=== PATIENT | female | born 1945 | race Two or more races ===

== ENCOUNTER 2023-02-18 22:54 | Inpatient (IN) | payer OTHER ==
[~2023-02-18] VITALS: Ht 160 cm; Wt 53.7 kg
[2023-02-18] MEDS ORDERED: ETOMIDATE (2MG/ML) 20ML VIAL IV ONE ×2 (22:58→23:30)
[2023-02-18] MEDS ORDERED: ROCURONIUM 10MG/ML 10ML VIAL IV ONE ×2 (22:59→23:30)
[2023-02-18] MEDS ORDERED: fentaNYL Drip 2500mCg/250mlNS 250 ML IV ONE (23:09)
[2023-02-18] MEDS ORDERED: MIDAZOLAM DRIP 50 mg/50mL 50 ML IV ONE (23:10)
[2023-02-18] MEDS: MIDAZOLAM DRIP 50 mg/50mL 50 ML IV SCH (23:19)
[2023-02-18] MEDS: fentaNYL Drip 2500mCg/250mlNS 250 ML IV SCH (23:19)
[2023-02-18 23:30] VITALS: O2SAT 76
[2023-02-19] VITALS (85 sets, daily range): BP systolic 85–199; BP diastolic 35–94; PULSE 52–101; RESP 15–35; TEMP 96.3–100.4; O2SAT 91–100
[2023-02-19 00:11] LABS: Hematocrit 36.3 % (36.0-46.0); Hemoglobin 11.2 g/dL (12.2-16.2); Mean Corpuscular Hemoglobin 24.2 pg (28.0-32.0); Mean Corpuscular Hgb Conc. 30.9 g/dL (32.0-36.0); Mean Corpuscular Volume 78.4 fL (80.0-100.0); Red Blood Cells 4.63 10^6/uL (4.0-5.20); Red Cell Distribution Width 19.2 % (11.8-14.3); White Blood Cell 22.7 10^3/uL (4.4-10.8)
[2023-02-19 00:21] LABS: Basophils % (manual) 0 (0.0-2.0); Blast Cells 0; Eosinophils % (manual) 0 (0-7); INR 1.09 (0.9-1.15); Metamyelocytes % 0; Myelocytes % 0; Partial Thromboplastin Time 35.4 SEC (24.5-34.5); Promyelocytes % 0; Prothrombin Time 11.4 sec (9.3-11.8); Reactive Lymphocytes 0
[2023-02-19 00:27] LABS: Alanine Aminotransferase 91 U/L (7-40); Albumin 4.2 g/dL (3.2-4.8); Alkaline Phosphatase 125 U/L (46-116); Anion Gap 16 (5-15); Aspartate Aminotransferase 88 U/L (13-40); BUN/Creatinine Ratio 8.2 (10.0-20.0); Bilirubin, Total 0.2 mg/dL (0.2-1.0); Blood Alcohol 3.9 mg/dL (<10); Blood Urea Nitrogen 10 mg/dL (9-23); Calcium 8.9 mg/dL (8.5-10.1); Carbon Dioxide 18 mmol/L (20-30); Chloride 97 mmol/L (98-107); Glucose 244 mg/dL (74-106); Sodium 131 mmol/L (136-145); Total Protein 6.2 g/dL (5.7-8.2)
[2023-02-19 00:32] LABS: Acetaminophen < 2.0 UG/ML (10.0-20.0); Salicylate < 3.0 mg/dL (2.8-20.0)
[2023-02-19 00:44] LABS: Lipase 34 U/L (12-53); Magnesium 2.2 mg/dL (1.6-2.6)
[2023-02-19 00:59] LABS: Band Neutrophils % (manual) 3; Lymphocytes % (manual) 31 (10.0-50.0); Monocytes % (manual) 4 (0-12); Platelet Estimate Adequate
[2023-02-19] MEDS ORDERED: VANCOMYCIN 1GM/200ML 200 ML IV ONE (01:00)
[2023-02-19] MEDS ORDERED: PIPERACILLIN-TAZOB 3.375GM 100 ML IV ONE (01:00)
[2023-02-19] MEDS ORDERED: LACTATED RINGER'S 2,100 ML IV ONE (01:00)
[2023-02-19 01:57] LABS: Urine Bacteria FEW /hpf (None Seen); Urine Blood 1+ /uL (Negative); Urine Clarity Clear (Clear); Urine Color Yellow (Yellow); Urine Protein, UAD 1+ (Negative); Urine Specific Gravity 1.014 (1.001-1.035); Urine Urobilinogen Normal (Negative); Urine WBC 5 /hpf (0 - 5)
[2023-02-19 02:01] LABS: Amphetamine Screen, Urine Neg (NEGATIVE); Barbiturate Scree,Urine Neg (NEGATIVE); Benzodiazephine Screen, Urine Neg (NEGATIVE); Cocaine Screen, Urine Neg (NEGATIVE); Opiate Scree,Urine Neg (NEGATIVE); Phencyclidine Screen, Urine Neg (NEGATIVE)
[2023-02-19 02:02] LABS: Cannabinoid Screen, Urine Pos (NEGATIVE)
[2023-02-19 02:50] LABS: Base Excess -7.7 mmol/L (-2.0-2.0)
[2023-02-19 03:04] LABS: Base Excess -4.2 mmol/L (-2.0-2.0)
[2023-02-19] MEDS ORDERED: NOREPINEPHRINE 8 MG/250ML KIT 250 ML IV ONE (04:20)
[2023-02-19] MEDS: NOREPINEPHRINE 8 MG/250ML KIT 250 ML IV SCH ×2 (04:25→23:39)
[2023-02-19] MEDS ORDERED: ALBUMIN 25% 100 ML IV ONE (04:30)
[2023-02-19] MEDS: VASOPRESSIN 20 UNITS in SODIUM CHL 0.9% 99 ML IV SCH ×3 (04:45→15:52)
[2023-02-19] MEDS ORDERED: VASOPRESSIN 20 UNIT/ML ONE (04:46)
[2023-02-19] MEDS: MIDAZOLAM DRIP 50 mg/50mL 50 ML IV SCH ×3 (06:58→23:39)
[2023-02-19] MEDS: ENOXAPARIN SOD 40 MG/0.4 ML SYRINGE SC SCH (10:10)
[2023-02-19 10:24] LABS: Alanine Aminotransferase 107 U/L (7-40); Albumin 4.4 g/dL (3.2-4.8); Alkaline Phosphatase 158 U/L (46-116); Anion Gap 22 (5-15); Aspartate Aminotransferase 164 U/L (13-40); BUN/Creatinine Ratio 7.3 (10.0-20.0); Blood Urea Nitrogen 8 mg/dL (9-23); Calcium 8.9 mg/dL (8.7-10.4); Carbon Dioxide 10 mmol/L (20-30); Chloride 103 mmol/L (98-107); Glucose 132 mg/dL (74-106); Magnesium 2.1 mg/dL (1.6-2.6); Potassium 4.6 mmol/L (3.5-5.1); Sodium 135 mmol/L (136-145)
[2023-02-19] MEDS ORDERED: ALBUTEROL SULF 2.5 MG/0.5ML(0.5%) NEB SOLN ONE (10:24)
[2023-02-19 10:25] LABS: Bilirubin, Total 0.4 mg/dL (0.2-1.0); Phosphorus 5.3 mg/dL (2.4-5.1); Total Protein 6.5 g/dL (5.7-8.2)
[2023-02-19] MEDS ORDERED: ALBUTEROL SULF 2.5 MG/0.5ML(0.5%) NEB SOLN NEB ONE (10:30)
[2023-02-19] MEDS ORDERED: CLINIMIX PER PHARMACY 0 ML IV SCH (11:45)
[2023-02-19] MEDS: ALBUTEROL SULF 2.5 MG/0.5ML(0.5%) NEB SOLN NEB SCH ×2 (12:01→18:45)
[2023-02-19] MEDS: PIPERACILLIN-TAZOB 3.375GM 100 ML IV SCH ×2 (14:10→21:53)
[2023-02-19] MEDS: methylPREDNISolone SOD SUCC 40 MG/ML VL IV SCH ×2 (14:10→22:02)
[2023-02-19] MEDS ORDERED: FLUO-125 PO (16:27)
[2023-02-19] MEDS ORDERED: ALBUAER3 IN (16:27)
[2023-02-19] MEDS ORDERED: RIVA15TA PO (16:27)
[2023-02-19] MEDS ORDERED: FLUT1SPR5 (16:27)
[2023-02-19] MEDS ORDERED: LEVO100T8 PO (16:27)
[2023-02-19] MEDS ORDERED: ATOR20TA PO (16:27)
[2023-02-19] MEDS ORDERED: FLUT1AER17 INH (16:27)
[2023-02-19] MEDS ORDERED: METO25TA93 PO (16:27)
[2023-02-19] MEDS ORDERED: TRAM50TA2 PO (16:27)
[2023-02-19] MEDS ORDERED: ARIP5TAB36 PO (16:27)
[2023-02-19] MEDS ORDERED: OXYB5TAB24 PO (16:27)
[2023-02-19] MEDS ORDERED: MONT-8 PO (16:27)
[2023-02-19] MEDS ORDERED: OMEP20TA PO (16:27)
[2023-02-19] MEDS ORDERED: POTA-220 PO (16:27)
[2023-02-19] MEDS ORDERED: FURO1TAB31 PO (16:27)
[2023-02-19 19:00] LABS: Magnesium 1.6 mg/dL (1.6-2.6)
[2023-02-19] MEDS ORDERED: AMINO ACID INFUSION IN D10W 1,000 ML IV NR (20:00)
[2023-02-19] MEDS: fentaNYL Drip 2500mCg/250mlNS 250 ML IV SCH (23:30)
[2023-02-19] MEDS: InsuLIN REG 1unit/0.01ml Soln (100units/ml) SC SCH (23:49)
[2023-02-19] MEDS: ACCU-CHEK COMFORT CURVE STRIP VI SCH (23:49)
[2023-02-20] VITALS (104 sets, daily range): BP systolic 89–181; BP diastolic 38–80; PULSE 56–107; RESP 9–26; TEMP 97.9–99.1; O2SAT 93–100
[2023-02-20] MEDS ORDERED: DEXTROSE (50%) 50ML SYRG IV SCH
[2023-02-20] MEDS: ALBUTEROL SULF 2.5 MG/0.5ML(0.5%) NEB SOLN NEB SCH ×4 (00:15→18:12)
[2023-02-20] MEDS: VASOPRESSIN 20 UNITS in SODIUM CHL 0.9% 99 ML IV SCH ×2 (02:59→14:06)
[2023-02-20 04:09] LABS: Hemoglobin 8.8 g/dL (12.2-16.2)
[2023-02-20 04:12] LABS: Hematocrit 27.1 % (36.0-46.0); Mean Corpuscular Hemoglobin 24.2 pg (28.0-32.0); Mean Corpuscular Hgb Conc. 32.4 g/dL (32.0-36.0); Mean Corpuscular Volume 74.7 fL (80.0-100.0); Red Blood Cells 3.63 10^6/uL (4.0-5.20); Red Cell Distribution Width 18.9 % (11.8-14.3); White Blood Cell 10.9 10^3/uL (4.4-10.8)
[2023-02-20 04:24] LABS: Basophils % (manual) 0 (0.0-2.0); Blast Cells 0; Eosinophils % (manual) 0 (0-7); Metamyelocytes % 0; Myelocytes % 0; Promyelocytes % 0; Reactive Lymphocytes 0
[2023-02-20 04:31] LABS: Alanine Aminotransferase 64 U/L (7-40); Albumin 3.9 g/dL (3.2-4.8); Alkaline Phosphatase 88 U/L (46-116); Anion Gap 10 (5-15); Aspartate Aminotransferase 42 U/L (13-40); BUN/Creatinine Ratio 15.1 (10.0-20.0); Bilirubin, Total 0.5 mg/dL (0.2-1.0); Blood Urea Nitrogen 13 mg/dL (9-23); Calcium 8.7 mg/dL (8.7-10.4); Carbon Dioxide 20 mmol/L (20-30); Chloride 100 mmol/L (98-107); Glucose 198 mg/dL (74-106); Magnesium 1.6 mg/dL (1.6-2.6); Phosphorus 3.3 mg/dL (2.4-5.1); Potassium 3.6 mmol/L (3.5-5.1); Total Protein 5.6 g/dL (5.7-8.2)
[2023-02-20 04:34] LABS: Sodium 130 mmol/L (136-145)
[2023-02-20 05:16] LABS: Band Neutrophils % (manual) 2; Lymphocytes % (manual) 7 (10.0-50.0); Monocytes % (manual) 1 (0-12); Platelet Estimate Adequate
[2023-02-20] MEDS: PIPERACILLIN-TAZOB 3.375GM 100 ML IV SCH ×3 (05:42→21:33)
[2023-02-20] MEDS: methylPREDNISolone SOD SUCC 40 MG/ML VL IV SCH ×3 (05:59→21:33)
[2023-02-20] MEDS: InsuLIN REG 1unit/0.01ml Soln (100units/ml) SC SCH ×4 (05:59→23:58)
[2023-02-20] MEDS: ACCU-CHEK COMFORT CURVE STRIP VI SCH ×4 (05:59→23:58)
[2023-02-20] MEDS: fentaNYL Drip 2500mCg/250mlNS 250 ML IV SCH (07:19)
[2023-02-20 07:39] LABS: Base Excess -2.8 mmol/L (-2.0-2.0)
[2023-02-20] MEDS ORDERED: cefTRIAXone 1GM/50ML D5W 50 ML IV SCH (09:00)
[2023-02-20] MEDS: NICOTINE 21MG/24 HR TOPICAL PATCH TD SCH (10:00)
[2023-02-20] MEDS: PANTOPRAZOLE 40 MG/10 ML VIAL INJ IV SCH (10:13)
[2023-02-20] MEDS: ENOXAPARIN SOD 40 MG/0.4 ML SYRINGE SC SCH (10:14)
[2023-02-20] MEDS ORDERED: PANT40T PO (10:51)
[2023-02-20] MEDS ORDERED: ACETAMINOPHEN IV 1000 MG/100ML (10MG/ML) IV PRN (12:00)
[2023-02-20 12:14] LABS: Base Excess -3.2 mmol/L (-2.0-2.0)
[2023-02-20] MEDS ORDERED: MAGNESIUM SULFATE 1GM/100ML 100 ML IV ONE (13:00)
[2023-02-20] MEDS ORDERED: LEVOTHYROXINE SODIUM 100 MCG/5 ML INJ IV ONE (13:00)
[2023-02-20] MEDS ORDERED: AMINO ACID INFUSION IN D10W 1,000 ML IV NR (20:00)
[2023-02-21] VITALS (86 sets, daily range): BP systolic 101–177; BP diastolic 42–81; PULSE 61–107; RESP 10–25; TEMP 97.7–100; O2SAT 91–100
[2023-02-21] MEDS: ALBUTEROL SULF 2.5 MG/0.5ML(0.5%) NEB SOLN NEB SCH ×6 (00:08→22:35)
[2023-02-21] MEDS ORDERED: ACETAMINOPHEN 650 mg PER 20.3 mL UD PO PRN (00:15)
[2023-02-21] MEDS: VASOPRESSIN 20 UNITS in SODIUM CHL 0.9% 99 ML IV SCH ×2 (01:13→12:01)
[2023-02-21 04:17] LABS: Hemoglobin 9.7 g/dL (12.2-16.2); Mean Corpuscular Hemoglobin 24.4 pg (28.0-32.0)
[2023-02-21 04:19] LABS: Hematocrit 30.9 % (36.0-46.0); Mean Corpuscular Hgb Conc. 31.3 g/dL (32.0-36.0); Red Blood Cells 3.96 10^6/uL (4.0-5.20); Red Cell Distribution Width 19.1 % (11.8-14.3); White Blood Cell 15.2 10^3/uL (4.4-10.8)
[2023-02-21 04:30] LABS: Alanine Aminotransferase 53 U/L (7-40); Albumin 4.1 g/dL (3.2-4.8); Alkaline Phosphatase 76 U/L (46-116); Anion Gap 11 (5-15); Aspartate Aminotransferase 30 U/L (13-40); BUN/Creatinine Ratio 11.4 (10.0-20.0); Bilirubin, Total 0.4 mg/dL (0.2-1.0); Blood Urea Nitrogen 10 mg/dL (9-23); Calcium 8.9 mg/dL (8.7-10.4); Carbon Dioxide 19 mmol/L (20-30); Chloride 103 mmol/L (98-107); Glucose 155 mg/dL (74-106); Potassium 3.5 mmol/L (3.5-5.1); Sodium 133 mmol/L (136-145)
[2023-02-21 04:37] LABS: Basophils % (manual) 0 (0.0-2.0); Eosinophils % (manual) 0 (0-7); Metamyelocytes % 0
[2023-02-21 04:38] LABS: Blast Cells 0; Myelocytes % 0; Promyelocytes % 0; Reactive Lymphocytes 0
[2023-02-21] MEDS: NOREPINEPHRINE 8 MG/250ML KIT 250 ML IV SCH (04:45)
[2023-02-21] MEDS: methylPREDNISolone SOD SUCC 40 MG/ML VL IV SCH ×3 (05:41→21:59)
[2023-02-21] MEDS: PIPERACILLIN-TAZOB 3.375GM 100 ML IV SCH ×4 (06:00→21:59)
[2023-02-21] MEDS: InsuLIN REG 1unit/0.01ml Soln (100units/ml) SC SCH ×4 (06:00→23:33)
[2023-02-21] MEDS: ACCU-CHEK COMFORT CURVE STRIP VI SCH ×4 (06:19→23:34)
[2023-02-21 08:15] LABS: Band Neutrophils % (manual) 4; Lymphocytes % (manual) 2 (10.0-50.0); Monocytes % (manual) 2 (0-12)
[2023-02-21 08:16] LABS: Platelet Estimate Adequate
[2023-02-21] MEDS: MORPHINE SULFATE INJ 2 MG/ml SYRG IV PRN ×2 (09:15→16:04)
[2023-02-21] MEDS: NICOTINE 21MG/24 HR TOPICAL PATCH TD SCH (10:00)
[2023-02-21] MEDS: ENOXAPARIN SOD 40 MG/0.4 ML SYRINGE SC SCH (10:12)
[2023-02-21] MEDS: PANTOPRAZOLE 40 MG/10 ML VIAL INJ IV SCH (10:12)
[2023-02-21] MEDS: LEVOTHYROXINE SODIUM 100 MCG/5 ML INJ IV SCH (10:12)
[2023-02-21] MEDS: IPRATROPIUM BROM 0.5 MG/2.5ML INH SOL NEB SCH ×3 (14:17→22:35)
[2023-02-22] VITALS (39 sets, daily range): BP systolic 133–169; BP diastolic 48–76; PULSE 77–109; RESP 12–24; TEMP 98.7–99; O2SAT 3–98
[2023-02-22] MEDS: ALBUTEROL SULF 2.5 MG/0.5ML(0.5%) NEB SOLN NEB SCH ×6 (02:30→22:45)
[2023-02-22] MEDS: IPRATROPIUM BROM 0.5 MG/2.5ML INH SOL NEB SCH ×6 (02:30→22:45)
[2023-02-22] MEDS: MORPHINE SULFATE INJ 2 MG/ml SYRG IV PRN ×2 (03:12→07:33)
[2023-02-22 04:12] LABS: Basophils # (auto) 0 10 ^3/uL (0-0.2); Eosinophils # (auto) 0 10 ^3/uL (0-0.8); Hemoglobin 8.7 g/dL (12.2-16.2); Lymphocytes # (auto) 0.3 10 ^3/uL (0.4-5.4); Neutrophils # (auto) 11.3 10 ^3/uL (1.6-8.6)
[2023-02-22 04:14] LABS: Lymphocytes % (auto) 2.3 % (10.0-50.0); Mean Corpuscular Hemoglobin 24.1 pg (28.0-32.0); Mean Corpuscular Hgb Conc. 32.3 g/dL (32.0-36.0); Mean Corpuscular Volume 74.5 fL (80.0-100.0); Monocytes # (auto) 0.5 10 ^3/uL (0-1.3); Monocytes % (auto) 3.9 % (0.0-12.0); Neutrophils % (auto) 93.8 % (37.0-80.0); Red Blood Cells 3.62 10^6/uL (4.0-5.20); White Blood Cell 12.1 10^3/uL (4.4-10.8)
[2023-02-22 04:18] LABS: Chloride 106 mmol/L (98-107); Potassium 3.5 mmol/L (3.5-5.1); Sodium 138 mmol/L (136-145)
[2023-02-22 04:19] LABS: Anion Gap 8 (5-15); Carbon Dioxide 24 mmol/L (20-30)
[2023-02-22 04:24] LABS: BUN/Creatinine Ratio 15.1 (10.0-20.0); Blood Urea Nitrogen 13 mg/dL (9-23); Glucose 113 mg/dL (74-106)
[2023-02-22] MEDS: methylPREDNISolone SOD SUCC 40 MG/ML VL IV SCH ×3 (05:36→21:59)
[2023-02-22] MEDS: PIPERACILLIN-TAZOB 3.375GM 100 ML IV SCH ×3 (05:36→21:58)
[2023-02-22] MEDS: InsuLIN REG 1unit/0.01ml Soln (100units/ml) SC SCH ×3 (05:54→18:00)
[2023-02-22] MEDS: ACCU-CHEK COMFORT CURVE STRIP VI SCH ×4 (05:55→23:56)
[2023-02-22] MEDS ORDERED: BUDESONIDE (INHALATION) 0.5 MG/2 ML NEB NEB SCH (10:00)
[2023-02-22] MEDS: PANTOPRAZOLE 40 MG/10 ML VIAL INJ IV SCH (10:49)
[2023-02-22] MEDS: LEVOTHYROXINE SODIUM 100 MCG/5 ML INJ IV SCH (10:49)
[2023-02-22] MEDS: ENOXAPARIN SOD 40 MG/0.4 ML SYRINGE SC SCH (10:49)
[2023-02-22] MEDS ORDERED: ALPRAZolam 0.25 MG TAB PO PRN (11:15)
[2023-02-22] MEDS ORDERED: BUDESONIDE (INHALATION) 0.5 MG/2 ML NEB NEB ONE (12:00)
[2023-02-22] MEDS ORDERED: POTASSIUM CHL 20 Meq TABLET PO ONE (16:00)
[2023-02-22] MEDS ORDERED: FUROSEMIDE 20 MG/2 ML VIAL IV ONE (16:00)
[2023-02-22] MEDS: BUDESONIDE (INHALATION) 0.5 MG/2 ML NEB NEB SCH (19:16)
[2023-02-22] MEDS: traMADol HCL 50 MG TAB PO PRN (20:24)
[2023-02-22] MEDS: MONTELUKAST SODIUM 10 MG TAB PO SCH (21:58)
[2023-02-23] VITALS (18 sets, daily range): BP systolic 111–176; BP diastolic 63–82; PULSE 65–101; RESP 16–20; TEMP 97.9–98.2; O2SAT 95–99
[2023-02-23] MEDS: InsuLIN REG 1unit/0.01ml Soln (100units/ml) SC SCH ×4 (00:02→17:29)
[2023-02-23] MEDS: ALBUTEROL SULF 2.5 MG/0.5ML(0.5%) NEB SOLN NEB SCH ×6 (02:00→22:29)
[2023-02-23] MEDS: IPRATROPIUM BROM 0.5 MG/2.5ML INH SOL NEB SCH ×6 (02:00→22:29)
[2023-02-23] MEDS: methylPREDNISolone SOD SUCC 40 MG/ML VL IV SCH ×3 (05:43→21:08)
[2023-02-23] MEDS: PIPERACILLIN-TAZOB 3.375GM 100 ML IV SCH ×3 (05:44→21:08)
[2023-02-23] MEDS: ACCU-CHEK COMFORT CURVE STRIP VI SCH ×3 (05:59→17:30)
[2023-02-23] MEDS ORDERED: LEVOTHYROXINE SODIUM 100 MCG/5 ML INJ IV SCH (06:00)
[2023-02-23 06:52] LABS: Chloride 104 mmol/L (98-107); Potassium 3.6 mmol/L (3.5-5.1); Sodium 138 mmol/L (136-145)
[2023-02-23 06:53] LABS: Anion Gap 11 (5-15); Carbon Dioxide 23 mmol/L (20-30)
[2023-02-23 06:54] LABS: Calcium 9.1 mg/dL (8.7-10.4)
[2023-02-23 06:58] LABS: Glucose 156 mg/dL (74-106)
[2023-02-23 06:59] LABS: BUN/Creatinine Ratio 13.6 (10.0-20.0); Blood Urea Nitrogen 12 mg/dL (9-23)
[2023-02-23] MEDS ORDERED: LEVOTHYROXINE SODIUM 100 MCG TAB PO SCH (07:00)
[2023-02-23] MEDS: BUDESONIDE (INHALATION) 0.5 MG/2 ML NEB NEB SCH ×2 (07:24→22:29)
[2023-02-23] MEDS: PANTOPRAZOLE 40 MG/10 ML VIAL INJ IV SCH (09:20)
[2023-02-23] MEDS: LEVOTHYROXINE SODIUM 100 MCG/5 ML INJ IV SCH (09:20)
[2023-02-23] MEDS: POTASSIUM CHL 20 Meq TABLET PO SCH (09:24)
[2023-02-23] MEDS: ENOXAPARIN SOD 40 MG/0.4 ML SYRINGE SC SCH (09:25)
[2023-02-23] MEDS: FUROSEMIDE 40 MG TAB PO SCH (09:38)
[2023-02-23] MEDS ORDERED: LACTULOSE 20Gm/30ML SOLN PO ONE (18:15)
[2023-02-23] MEDS: traMADol HCL 50 MG TAB PO PRN (20:44)
[2023-02-23] MEDS: MONTELUKAST SODIUM 10 MG TAB PO SCH (21:08)
[2023-02-24] VITALS (12 sets, daily range): BP systolic 107–160; BP diastolic 56–83; PULSE 54–88; RESP 16–20; TEMP 97.6–99.5; O2SAT 95–100
[2023-02-24] MEDS: ACCU-CHEK COMFORT CURVE STRIP VI SCH ×2 (00:11→05:44)
[2023-02-24] MEDS: InsuLIN REG 1unit/0.01ml Soln (100units/ml) SC SCH ×2 (00:23→05:43)
[2023-02-24] MEDS: ALBUTEROL SULF 2.5 MG/0.5ML(0.5%) NEB SOLN NEB SCH ×4 (02:05→14:08)
[2023-02-24] MEDS: IPRATROPIUM BROM 0.5 MG/2.5ML INH SOL NEB SCH ×4 (02:05→14:08)
[2023-02-24] MEDS: PIPERACILLIN-TAZOB 3.375GM 100 ML IV SCH ×3 (05:44→13:56)
[2023-02-24] MEDS: methylPREDNISolone SOD SUCC 40 MG/ML VL IV SCH (05:44)
[2023-02-24 06:22] LABS: Basophils # (auto) 0 10 ^3/uL (0-0.2); Chloride 104 mmol/L (98-107); Eosinophils # (auto) 0 10 ^3/uL (0-0.8); Hemoglobin 10.6 g/dL (12.2-16.2); Lymphocytes # (auto) 0.5 10 ^3/uL (0.4-5.4); Neutrophils # (auto) 8.1 10 ^3/uL (1.6-8.6); Potassium 3.8 mmol/L (3.5-5.1); Sodium 138 mmol/L (136-145)
[2023-02-24 06:24] LABS: Anion Gap 7 (5-15); Carbon Dioxide 27 mmol/L (20-30)
[2023-02-24 06:25] LABS: Calcium 8.9 mg/dL (8.7-10.4); Hematocrit 33.7 % (36.0-46.0); Lymphocytes % (auto) 5.3 % (10.0-50.0); Mean Corpuscular Hemoglobin 24.2 pg (28.0-32.0); Mean Corpuscular Hgb Conc. 31.5 g/dL (32.0-36.0); Mean Corpuscular Volume 76.9 fL (80.0-100.0); Monocytes # (auto) 0.6 10 ^3/uL (0-1.3); Neutrophils % (auto) 88.7 % (37.0-80.0); Nucleated Red Blood Cells % 0.1 %; Red Blood Cells 4.39 10^6/uL (4.0-5.20); Red Cell Distribution Width 18.7 % (11.8-14.3); White Blood Cell 9.2 10^3/uL (4.4-10.8)
[2023-02-24 06:29] LABS: Glucose 110 mg/dL (74-106)
[2023-02-24 06:30] LABS: BUN/Creatinine Ratio 11.5 (10.0-20.0); Blood Urea Nitrogen 11 mg/dL (9-23)
[2023-02-24] MEDS: BUDESONIDE (INHALATION) 0.5 MG/2 ML NEB NEB SCH (07:15)
[2023-02-24] MEDS ORDERED: PANTOPRAZOLE 40 MG TAB PO SCH (10:00)
[2023-02-24] MEDS: ENOXAPARIN SOD 40 MG/0.4 ML SYRINGE SC SCH (10:27)
[2023-02-24] MEDS: POTASSIUM CHL 20 Meq TABLET PO SCH (10:27)
[2023-02-24] MEDS: LEVOTHYROXINE SODIUM 100 MCG/5 ML INJ IV SCH (10:28)
[2023-02-24] MEDS: FUROSEMIDE 40 MG TAB PO SCH (10:28)
[2023-02-24] MEDS ORDERED: LEVO137T3 PO (13:43)
[2023-02-24] MEDS ORDERED: methylPREDNISolone SOD SUCC 40 MG/ML VL IV SCH (22:00)
== END 2023-02-24 16:28 | disposition home health service (06) | DRG 871 ==
LOC: ER 22:54 → EDBD 22:54 → TELE 02-19 03:53 → ICU WEST 02-19 05:40 → TELE-CENTR 02-22 18:49
PROVIDERS: ADMIT Internal Medicine; ATTEND Internal Medicine
PROC: 5A1945Z Respiratory Ventilation, 24-96 Consecutive Hours (ICD-10-PCS; principal; 2023-02-18)
PROC: 0BH17EZ Insertion of Endotracheal Airway into Trachea, Via Natural or Artificial Opening (ICD-10-PCS; 2023-02-18)
PROC: 06HN33Z Insertion of Infusion Device into Left Femoral Vein, Percutaneous Approach (ICD-10-PCS; 2023-02-19)
DX: A41.9 Sepsis, unspecified organism (principal); I46.9 Cardiac arrest, cause unspecified; J96.01 Acute respiratory failure with hypoxia; N17.0 Acute kidney failure with tubular necrosis; R65.21 Severe sepsis with septic shock; J44.1 Chronic obstructive pulmonary disease with (acute) exacerbation; D64.9 Anemia, unspecified; E03.9 Hypothyroidism, unspecified; F17.200 Nicotine dependence, unspecified, uncomplicated; J43.9 Emphysema, unspecified; Z82.49 Family history of ischemic heart disease and other diseases of the circulatory system; R74.01 Elevation of levels of liver transaminase levels
CPT/HCPCS: 31500; 36415; 36556; 36600; 70450; 71045; 71260; 74177; 80048; 80053; 80061; 80307; 80320; 80329; 81001; 82010; 82140; 82805; 82962; 83036; 83690; 83735; 83880; 84100; 84436; 84439; 84443; 84480; 84484; 85007; 85025; 85027; 85610; 85730; 86141; 86850; 86900; 86901; 87040; 87070; 87081; 87086; 87205; 92610; 93005; 93306; 93970; 94002; 94003; 94640; 97110; 97116; 97163; 97530; C9113; G0378; J1815; J2250; J2543; J3490; J7060; P9047

== ENCOUNTER 2023-03-06 15:58 | Inpatient (IN) | payer OTHER, MEDICAID ==
[~2023-03-06] VITALS: Ht 160 cm; Wt 54.7 kg
[~2023-03-06 15:58] MED LIST: ALBUAER3 IN; ARIP5TAB36 PO; ATOR20TA PO; FLUO-125 PO; FLUT1AER17 INH; FLUT1SPR5; FURO1TAB31 PO; LEVO137T3 PO; METO25TA93 PO; MONT-8 PO; OXYB5TAB24 PO; PANT40T PO; POTA-220 PO; RIVA15TA PO; TRAM50TA2 PO
[2023-03-06] MEDS ORDERED: ASPirin 81 mg TAB PO ONE (16:30)
[2023-03-06 17:16] LABS: Basophils # (auto) 0.1 10 ^3/uL (0-0.2); Basophils % (auto) 0.9 % (0.0-2.0); Eosinophils # (auto) 0.1 10 ^3/uL (0-0.8); Eosinophils % (auto) 0.6 % (0.0-7.0); Hematocrit 36.9 % (36.0-46.0); Hemoglobin 11.7 g/dL (12.2-16.2); Lymphocytes # (auto) 1.2 10 ^3/uL (0.4-5.4); Lymphocytes % (auto) 14.1 % (10.0-50.0); Mean Corpuscular Hemoglobin 24.1 pg (28.0-32.0); Mean Corpuscular Hgb Conc. 31.6 g/dL (32.0-36.0); Mean Corpuscular Volume 76.2 fL (80.0-100.0); Monocytes # (auto) 0.6 10 ^3/uL (0-1.3); Monocytes % (auto) 6.7 % (0.0-12.0); Neutrophils # (auto) 6.8 10 ^3/uL (1.6-8.6); Neutrophils % (auto) 77.7 % (37.0-80.0); Nucleated Red Blood Cells % 0.1 %; Red Blood Cells 4.84 10^6/uL (4.0-5.20); Red Cell Distribution Width 19.2 % (11.8-14.3); White Blood Cell 8.8 10^3/uL (4.4-10.8)
[2023-03-06 17:43] LABS: Alanine Aminotransferase 14 U/L (7-40); Albumin 4.3 g/dL (3.2-4.8); Alkaline Phosphatase 159 U/L (46-116); Anion Gap 9 (5-15); Aspartate Aminotransferase 19 U/L (13-40); Bilirubin, Total 0.5 mg/dL (0.2-1.0); Calcium 9.1 mg/dL (8.5-10.1); Carbon Dioxide 24 mmol/L (20-30); Chloride 95 mmol/L (98-107); Glucose 74 mg/dL (74-106); Potassium 3.5 mmol/L (3.5-5.1); Sodium 128 mmol/L (136-145); Total Protein 6.3 g/dL (5.7-8.2)
[2023-03-06 18:00] LABS: BUN/Creatinine Ratio 6.7 (10.0-20.0); Blood Urea Nitrogen < 5 mg/dL (9-23)
[2023-03-06 18:11] LABS: Magnesium 1.3 mg/dL (1.6-2.6)
[2023-03-06] MEDS ORDERED: ONDANSETRON HCL 4 MG/2 ML VIAL IV PRN (20:15)
[2023-03-06] MEDS ORDERED: MAALOX PLUS or MAALOX 30 ML PO ONE (20:15)
[2023-03-06] MEDS ORDERED: IPRATROPIUM BROM 0.5 MG/2.5ML INH SOL NEB PRN (20:30)
[2023-03-06] MEDS ORDERED: ALBUTEROL SULF 2.5 MG/0.5ML(0.5%) NEB SOLN NEB PRN (20:30)
[2023-03-06] MEDS ORDERED: traMADol HCL 50 MG TAB PO PRN (20:30)
[2023-03-06 21:43] VITALS: O2SAT 96
[2023-03-06 21:44] VITALS: PULSE 80; RESP 16; O2SAT 96
[2023-03-06] MEDS: SODIUM CHLORIDE 0.9% 1,000 ML IV SCH (23:30)
[2023-03-06] MEDS: ATORVASTATIN 20 MG TAB PO SCH (23:36)
[2023-03-06] MEDS: METOPROLOL TARTRATE 25 MG TAB PO SCH (23:37)
[2023-03-07] VITALS (9 sets, daily range): BP systolic 129–156; BP diastolic 50–52; PULSE 63–82; RESP 16–20; TEMP 97.8–98.1; O2SAT 93–98
[2023-03-07 05:55] LABS: Basophils # (auto) 0.1 10 ^3/uL (0-0.2); Eosinophils # (auto) 0.1 10 ^3/uL (0-0.8); Eosinophils % (auto) 1.2 % (0.0-7.0); Hemoglobin 11.2 g/dL (12.2-16.2); Lymphocytes # (auto) 1.1 10 ^3/uL (0.4-5.4); Mean Corpuscular Hemoglobin 24.7 pg (28.0-32.0); Mean Corpuscular Hgb Conc. 31.9 g/dL (32.0-36.0); Mean Corpuscular Volume 77.3 fL (80.0-100.0); Monocytes # (auto) 0.4 10 ^3/uL (0-1.3); Nucleated Red Blood Cells % 0.1 %
[2023-03-07 05:58] LABS: Basophils % (auto) 1.2 % (0.0-2.0); Hematocrit 35.2 % (36.0-46.0); Lymphocytes % (auto) 18.7 % (10.0-50.0); Monocytes % (auto) 6.6 % (0.0-12.0); Neutrophils # (auto) 4.3 10 ^3/uL (1.6-8.6); Neutrophils % (auto) 72.3 % (37.0-80.0); Red Blood Cells 4.55 10^6/uL (4.0-5.20); Red Cell Distribution Width 18.1 % (11.8-14.3)
[2023-03-07] MEDS: ACETAMINOPHEN 325 MG TAB PO PRN ×2 (06:02→22:54)
[2023-03-07 06:11] LABS: Chloride 98 mmol/L (98-107); Potassium 3.3 mmol/L (3.5-5.1); Sodium 130 mmol/L (136-145)
[2023-03-07 06:12] LABS: Anion Gap 11 (5-15); Carbon Dioxide 21 mmol/L (20-30)
[2023-03-07 06:13] LABS: Calcium 8.9 mg/dL (8.5-10.1)
[2023-03-07 06:18] LABS: Glucose 97 mg/dL (74-106)
[2023-03-07 06:30] LABS: Urine Bacteria NONE SEEN /hpf (None Seen); Urine Blood Negative /uL (Negative); Urine Clarity Clear (Clear); Urine Protein, UAD Negative (Negative); Urine Specific Gravity 1.002 (1.001-1.035); Urine Urobilinogen Normal (Negative); Urine WBC 1 /hpf (0 - 5); Urine pH 6.5 (5.0-8.0)
[2023-03-07 06:40] LABS: Urine Color Straw (Yellow)
[2023-03-07 06:53] LABS: BUN/Creatinine Ratio 6.8 (10.0-20.0); Blood Urea Nitrogen < 5 mg/dL (9-23)
[2023-03-07] MEDS ORDERED: LEVOTHYROXINE SODIUM 50 MCG TAB PO SCH (07:00)
[2023-03-07] MEDS: LEVOTHYROXINE SODIUM 112 MCG TAB PO SCH (08:50)
[2023-03-07] MEDS: LEVOTHYROXINE SODIUM 25 MCG TAB PO SCH (08:53)
[2023-03-07] MEDS: FUROSEMIDE 40 MG TAB PO SCH (10:00)
[2023-03-07] MEDS: PANTOPRAZOLE 40 MG TAB PO SCH (10:00)
[2023-03-07] MEDS: ASPirin 81 mg TAB PO SCH (10:00)
[2023-03-07] MEDS: SODIUM CHLORIDE 0.9% 1,000 ML IV SCH (10:00)
[2023-03-07] MEDS: METOPROLOL TARTRATE 25 MG TAB PO SCH ×2 (10:00→22:28)
[2023-03-07] MEDS: DOCUSATE SOD 100 MG CAP PO SCH ×2 (10:00→12:04)
[2023-03-07] MEDS: CLOPIDOGREL BISULFATE 75 MG TAB PO SCH (10:00)
[2023-03-07] MEDS: LISINOPRIL 10 MG TAB PO SCH (10:00)
[2023-03-07] MEDS ORDERED: FLUoxetine HCL 20 MG CAP PO SCH (22:00)
[2023-03-07] MEDS ORDERED: MONTELUKAST SODIUM 10 MG TAB PO SCH ×2 (22:00)
[2023-03-07] MEDS ORDERED: OXYBUTYNIN CHL 5 MG TAB PO SCH (22:00)
[2023-03-07] MEDS: Oxybutynin Chloride (Ditropan Xl) 5 MG PO SCH (22:00)
[2023-03-07] MEDS: ATORVASTATIN 20 MG TAB PO SCH (22:26)
[2023-03-08] VITALS (7 sets, daily range): BP systolic 142–152; BP diastolic 56–72; PULSE 66–75; RESP 14–18; TEMP 97.8–98.5; O2SAT 95–97
[2023-03-08] MEDS: NYSTATIN (MOUTH-THROAT) 500,000 UNITS/5 ML SUSP MT SCH ×2 (06:02→12:25)
[2023-03-08] MEDS: LEVOTHYROXINE SODIUM 112 MCG TAB PO SCH (06:02)
[2023-03-08] MEDS: LEVOTHYROXINE SODIUM 25 MCG TAB PO SCH (06:02)
[2023-03-08] MEDS: ACETAMINOPHEN 325 MG TAB PO PRN ×2 (06:02→12:28)
[2023-03-08] MEDS ORDERED: SUCRALFATE 1 GM/10 ML ORAL SUSP GT SCH (07:00)
[2023-03-08] MEDS ORDERED: MAGN400C4 PO ×2 (09:45→10:53)
[2023-03-08] MEDS ORDERED: Aripiprazole 5 MG PO SCH (10:00)
[2023-03-08] MEDS: Oxybutynin Chloride (Ditropan Xl) 5 MG PO SCH (10:00)
[2023-03-08] MEDS ORDERED: FLUoxetine HCL 20 MG CAP PO SCH (10:00)
[2023-03-08] MEDS ORDERED: BARIUM SULFATE 98% 340 GM PWDR ONE (10:33)
[2023-03-08] MEDS ORDERED: GASTROGRAFIN 120 ML SOL ONE (10:33)
[2023-03-08] MEDS ORDERED: EZ PAQUE SUSP 12OZ BTL ONE ×2 (10:35→10:43)
[2023-03-08] MEDS ORDERED: POTASSIUM EFFERVESENT TAB 25 MEQ PO ONE (10:45)
[2023-03-08] MEDS ORDERED: FLUT1AER17 INH (10:53)
[2023-03-08] MEDS ORDERED: NYS5LQ MT (10:53)
[2023-03-08] MEDS ORDERED: LEV112T PO (10:53)
[2023-03-08] MEDS ORDERED: FLUO20CA90 PO (10:53)
[2023-03-08] MEDS ORDERED: OXYB5TAB24 PO (10:53)
[2023-03-08] MEDS ORDERED: MET25T PO (10:53)
[2023-03-08] MEDS ORDERED: ARIP5TAB36 PO (10:53)
[2023-03-08] MEDS ORDERED: MONT-8 PO (10:53)
[2023-03-08] MEDS ORDERED: RIVA15TA PO (10:53)
[2023-03-08] MEDS: LISINOPRIL 10 MG TAB PO SCH (12:26)
[2023-03-08] MEDS: METOPROLOL TARTRATE 25 MG TAB PO SCH (12:26)
[2023-03-08] MEDS: CLOPIDOGREL BISULFATE 75 MG TAB PO SCH (12:27)
[2023-03-08] MEDS: FUROSEMIDE 40 MG TAB PO SCH (12:27)
[2023-03-08] MEDS: ASPirin 81 mg TAB PO SCH (12:28)
[2023-03-08] MEDS: PANTOPRAZOLE 40 MG TAB PO SCH (12:28)
[2023-03-08] MEDS ORDERED: PANT40TA2 PO (13:21)
[2023-03-09 08:24] LABS: Hepatitis B Surface Antigen Negative (Negative)
[2023-03-09 08:45] LABS: Hepatitis C Antibody Negative (Negative)
== END 2023-03-08 17:30 | disposition home or self-care (01) | DRG 391 ==
LOC: ER 15:58 → EDBD 15:58 → TELE 20:13 → TELE-CENTR 03-07 10:13
PROVIDERS: ADMIT Hospitalist; ATTEND Nurse Practitioner Acute Care
DX: K22.4 Dyskinesia of esophagus (principal); J96.21 Acute and chronic respiratory failure with hypoxia; J44.1 Chronic obstructive pulmonary disease with (acute) exacerbation; I11.0 Hypertensive heart disease with heart failure; I27.29 Other secondary pulmonary hypertension; F12.10 Cannabis abuse, uncomplicated; I25.10 Atherosclerotic heart disease of native coronary artery without angina pectoris; I50.9 Heart failure, unspecified; K22.2 Esophageal obstruction; I27.81 Cor pulmonale (chronic); K21.9 Gastro-esophageal reflux disease without esophagitis; I25.2 Old myocardial infarction; Z88.8 Allergy status to other drugs, medicaments and biological substances; Z91.041 Radiographic dye allergy status; Z79.890 Hormone replacement therapy; Z79.899 Other long term (current) drug therapy; Z79.51 Long term (current) use of inhaled steroids; Z90.710 Acquired absence of both cervix and uterus; Z82.49 Family history of ischemic heart disease and other diseases of the circulatory system
CPT/HCPCS: 36415; 70450; 71045; 74220; 80048; 80053; 81001; 83735; 83880; 84484; 85025; 86803; 87081; 87340; 93005; G0378

== ENCOUNTER → 2023-05-11 | Outpatient (CLI) | payer OTHER ==
[~2023-05-11] MED LIST changes: +FLUO20CA90 PO; +LEV112T PO; +MAGN400C4 PO; +MET25T PO; +NYS5LQ MT; +PANT40TA2 PO
[2023-05-11 09:51] LABS: Basophils # (auto) 0.1 10 ^3/uL (0-0.2); Hemoglobin 11.7 g/dL (12.2-16.2); Monocytes # (auto) 0.4 10 ^3/uL (0-1.3)
[2023-05-11 09:54] LABS: Eosinophils # (auto) 0.2 10 ^3/uL (0-0.8); Eosinophils % (auto) 1.7 % (0.0-7.0); Lymphocytes # (auto) 1.6 10 ^3/uL (0.4-5.4); Lymphocytes % (auto) 18.4 % (10.0-50.0); Mean Corpuscular Hemoglobin 23.6 pg (28.0-32.0); Mean Corpuscular Hgb Conc. 31.6 g/dL (32.0-36.0); Mean Corpuscular Volume 74.8 fL (80.0-100.0); Neutrophils # (auto) 6.6 10 ^3/uL (1.6-8.6); Neutrophils % (auto) 73.9 % (37.0-80.0); Nucleated Red Blood Cells % 0.3 %; Red Blood Cells 4.95 10^6/uL (4.0-5.20); White Blood Cell 8.9 10^3/uL (4.4-10.8)
[2023-05-11 10:01] LABS: Urine Bacteria NONE SEEN /hpf (None Seen); Urine Blood Negative /uL (Negative); Urine Clarity Clear (Clear); Urine Protein, UAD Negative (Negative); Urine Specific Gravity 1.008 (1.001-1.035); Urine Urobilinogen Normal (Negative); Urine WBC 3 /hpf (0 - 5); Urine pH 6.5 (5.0-8.0)
[2023-05-11 10:33] LABS: Urine Color Straw (Yellow)
[2023-05-11 10:59] LABS: Albumin 4.1 g/dL (3.2-4.8); Alkaline Phosphatase 93 U/L (46-116); Anion Gap 8 (5-15); Aspartate Aminotransferase 20 U/L (13-40); BUN/Creatinine Ratio 7.8 (10.0-20.0); Blood Urea Nitrogen 6 mg/dL (9-23); Calcium 9.7 mg/dL (8.5-10.1); Carbon Dioxide 27 mmol/L (20-30); Chloride 105 mmol/L (98-107); Glucose 92 mg/dL (74-106); Potassium 3.7 mmol/L (3.5-5.1); Sodium 140 mmol/L (136-145)
[2023-05-11 11:00] LABS: Bilirubin, Total 0.4 mg/dL (0.2-1.0); Total Protein 6.3 g/dL (5.7-8.2)
[2023-05-11 11:12] LABS: Alanine Aminotransferase < 9 U/L (7-40)
[2023-05-11 11:33] LABS: Magnesium 1.8 mg/dL (1.6-2.6)
[2023-05-11 11:50] LABS: Free T4 (Free Thyroxine) 1.88 ng/dL (0.89-1.76)
[2023-05-11 11:51] LABS: T3 Total 1.5 ng/mL (0.60-1.81)
== END | disposition home or self-care (01) ==
LOC: LAB 08:55
PROVIDERS: ATTEND Nurse Practitioner Gerontology
DX: Z00.01 Encounter for general adult medical examination with abnormal findings (principal); Z29.9 Encounter for prophylactic measures, unspecified; Z13.1 Encounter for screening for diabetes mellitus; E03.9 Hypothyroidism, unspecified; I10 Essential (primary) hypertension; E83.42 Hypomagnesemia
CPT/HCPCS: 36415; 80053; 81001; 83036; 83735; 84439; 84443; 84480; 85025; 87086

== ENCOUNTER 2023-07-25 11:28 | Emergency (ER) | payer OTHER ==
[~2023-07-25] VITALS: Ht 157.5 cm; Wt 45.0 kg
[~2023-07-25 11:28] MED LIST changes: +ARIP1TAB59 PO; -ARIP5TAB36 PO
[2023-07-25 13:06] LABS: Eosinophils # (auto) 0 10 ^3/uL (0-0.8); Hemoglobin 12.3 g/dL (12.2-16.2); Lymphocytes # (auto) 1.3 10 ^3/uL (0.4-5.4); Neutrophils # (auto) 12.3 10 ^3/uL (1.6-8.6); Red Cell Distribution Width 19.9 % (11.8-14.3)
[2023-07-25 13:08] LABS: Basophils # (auto) 0 10 ^3/uL (0-0.2); Basophils % (auto) 0.3 % (0.0-2.0); Eosinophils % (auto) 0.2 % (0.0-7.0); Hematocrit 38.1 % (36.0-46.0); Lymphocytes % (auto) 9.2 % (10.0-50.0); Mean Corpuscular Hemoglobin 24.8 pg (28.0-32.0); Mean Corpuscular Hgb Conc. 32.4 g/dL (32.0-36.0); Mean Corpuscular Volume 76.6 fL (80.0-100.0); Monocytes # (auto) 0.6 10 ^3/uL (0-1.3); Monocytes % (auto) 4.5 % (0.0-12.0); Neutrophils % (auto) 85.8 % (37.0-80.0); Red Blood Cells 4.97 10^6/uL (4.0-5.20); White Blood Cell 14.3 10^3/uL (4.4-10.8)
[2023-07-25 13:18] LABS: Chloride 101 mmol/L (98-107); Potassium 2.9 mmol/L (3.5-5.1); Sodium 136 mmol/L (136-145)
[2023-07-25 13:19] LABS: Anion Gap 12 (5-15); Calcium 7.8 mg/dL (8.5-10.1); Carbon Dioxide 23 mmol/L (20-30)
[2023-07-25 13:24] LABS: Blood Urea Nitrogen 16 mg/dL (9-23); Glucose 97 mg/dL (74-106)
[2023-07-25 13:25] LABS: Blood Alcohol < 3.0 mg/dL (<10)
[2023-07-25] MEDS: LORazepam 0.5 MG TAB PO ONE (16:32)
[2023-07-25 16:34] VITALS: BP 128/94; PULSE 107; RESP 18; TEMP 98.7; O2SAT 96
[2023-07-25 19:03] LABS: Urine Bacteria FEW /hpf (None Seen); Urine Blood TRACE /uL (Negative); Urine Clarity Turbid (Clear); Urine Color Yellow (Yellow); Urine Hyaline Cast FEW /lpf (0 - 2); Urine Protein, UAD TRACE (Negative); Urine Specific Gravity 1.019 (1.001-1.035); Urine Urobilinogen Normal (Negative); Urine WBC 247 /hpf (0 - 5)
[2023-07-25] MEDS ORDERED: CIPR-173 PO (19:08)
[2023-07-25] MEDS: CIPROFLOXACIN HCL 500 MG TAB PO ONE (19:15)
[2023-07-25] MEDS: ACETAMINOPHEN 325 MG TAB PO ONE (19:57)
== END 2023-07-25 20:01 | disposition home or self-care (01) ==
LOC: ER 11:28 → EDBD 11:28 → ER 19:59
DX: N39.0 Urinary tract infection, site not specified (principal); R11.2 Nausea with vomiting, unspecified; I12.9 Hypertensive chronic kidney disease with stage 1 through stage 4 chronic kidney disease, or unspecified chronic kidney disease; N18.9 Chronic kidney disease, unspecified; J44.9 Chronic obstructive pulmonary disease, unspecified; E78.5 Hyperlipidemia, unspecified; I25.2 Old myocardial infarction; E03.9 Hypothyroidism, unspecified; Z90.710 Acquired absence of both cervix and uterus; Z79.899 Other long term (current) drug therapy; Z88.8 Allergy status to other drugs, medicaments and biological substances
CPT/HCPCS: 36415; 80048; 80320; 81001; 85025

== ENCOUNTER 2023-07-27 15:32 | Inpatient (IN) | payer OTHER ==
[~2023-07-27] VITALS: Ht 152.4 cm; Wt 50.9 kg
[~2023-07-27 15:32] MED LIST changes: +CIPR-173 PO
[2023-07-27 17:12] LABS: Basophils # (auto) 0.1 10 ^3/uL (0-0.2); Eosinophils # (auto) 0 10 ^3/uL (0-0.8); Eosinophils % (auto) 0.4 % (0.0-7.0); Lymphocytes # (auto) 2.7 10 ^3/uL (0.4-5.4); Neutrophils % (auto) 65.8 % (37.0-80.0)
[2023-07-27 17:14] LABS: Basophils % (auto) 0.8 % (0.0-2.0); Hematocrit 38.7 % (36.0-46.0); Hemoglobin 12.5 g/dL (12.2-16.2); Lymphocytes % (auto) 26.7 % (10.0-50.0); Mean Corpuscular Hemoglobin 24.8 pg (28.0-32.0); Mean Corpuscular Hgb Conc. 32.2 g/dL (32.0-36.0); Monocytes # (auto) 0.6 10 ^3/uL (0-1.3); Monocytes % (auto) 6.3 % (0.0-12.0); Neutrophils # (auto) 6.6 10 ^3/uL (1.6-8.6); Red Blood Cells 5.03 10^6/uL (4.0-5.20); Red Cell Distribution Width 19.8 % (11.8-14.3); White Blood Cell 10.1 10^3/uL (4.4-10.8)
[2023-07-27 17:32] LABS: Alanine Aminotransferase 17 U/L (7-40); Albumin 4.2 g/dL (3.2-4.8); Alkaline Phosphatase 88 U/L (46-116); Anion Gap 11 (5-15); Aspartate Aminotransferase 16 U/L (13-40); BUN/Creatinine Ratio 12.5 (10.0-20.0); Blood Urea Nitrogen 12 mg/dL (9-23); Calcium 7.2 mg/dL (8.5-10.1); Carbon Dioxide 24 mmol/L (20-30); Chloride 105 mmol/L (98-107); Glucose 107 mg/dL (74-106); Potassium 2.8 mmol/L (3.5-5.1); Sodium 140 mmol/L (136-145)
[2023-07-27 17:33] LABS: Bilirubin, Total 0.2 mg/dL (0.2-1.0); Total Protein 6.4 g/dL (5.7-8.2)
[2023-07-27] MEDS: HYDROcodone-ACET 5/325MG TAB PO ONE (23:57)
[2023-07-27] MEDS: POTASSIUM EFFERVESENT TAB 25 MEQ PO ONE (23:58)
[2023-07-28] MEDS ORDERED: POTASSIUM CHL 20MEQ/100ML 100 ML IV SCH (00:45)
[2023-07-28] MEDS: CALCIUM GLUC 1,000mg/50ml-NS 50 ML IV SCH ×2 (00:45→09:32)
[2023-07-28] MEDS: POTASSIUM EFFERVESENT TAB 25 MEQ PO ONE ×2 (01:15→09:33)
[2023-07-28 01:25] LABS: Urine Bacteria None Seen /hpf (None Seen)
[2023-07-28 01:42] LABS: Urine Blood Negative /uL (Negative); Urine Clarity Clear (Clear); Urine Color Light-Yellow (Yellow); Urine Hyaline Cast MOD /lpf (0 - 2); Urine Mucus FEW (None Seen); Urine Protein, UAD Negative (Negative); Urine Specific Gravity 1.009 (1.001-1.035); Urine Urobilinogen Normal (Negative); Urine WBC 8 /hpf (0 - 5); Urine pH 5.5 (5.0-9.0)
[2023-07-28] MEDS: cefTRIAXone 1GM/50ML D5W 50 ML IV ONE (02:05)
[2023-07-28] MEDS ORDERED: ONDANSETRON HCL 4 MG/2 ML VIAL IV PRN (02:30)
[2023-07-28] MEDS ORDERED: hydrALAZINE HCL 20 MG/ML VL IV PRN (02:30)
[2023-07-28] MEDS ORDERED: DOCUSATE SOD 100 MG CAP PO PRN (02:30)
[2023-07-28] MEDS ORDERED: NITROGLYCERIN 0.4 MG SL TAB SL PRN (03:15)
[2023-07-28] MEDS ORDERED: MORPHINE SULFATE INJ 2 MG/ml SYRG IV PRN (03:15)
[2023-07-28] MEDS: LEVOTHYROXINE SODIUM 112 MCG TAB PO SCH (05:05)
[2023-07-28] MEDS: SODIUM CHLOR 0.9% PF (SALINE LOCK) 10ML VIAL/SYR IV SCH (05:05)
[2023-07-28 07:30] VITALS: PULSE 82; RESP 82; O2SAT 95
[2023-07-28 08:34] LABS: Alanine Aminotransferase 12 U/L (7-40); Albumin 3.8 g/dL (3.2-4.8); Alkaline Phosphatase 73 U/L (46-116); Anion Gap 8 (5-15); Aspartate Aminotransferase 16 U/L (13-40); Bilirubin, Total 0.2 mg/dL (0.2-1.0); Blood Urea Nitrogen 10 mg/dL (9-23); CRP High Sensitivity 0.61 mg/dL (<1.0); Calcium 7.6 mg/dL (8.5-10.1); Carbon Dioxide 25 mmol/L (20-30); Chloride 101 mmol/L (98-107); Cholesterol 107 mg/dL (< 200); Glucose 79 mg/dL (74-106); HDL Cholesterol 35 mg/dL (40-59); LDL Cholesterol 49 mg/dL (< 100); Potassium 3.3 mmol/L (3.5-5.1); Triglycerides 136 mg/dL (< 150)
[2023-07-28 08:38] LABS: Eosinophils # (auto) 0 10 ^3/uL (0-0.8); Eosinophils % (auto) 0.6 % (0.0-7.0); Lymphocytes # (auto) 2.8 10 ^3/uL (0.4-5.4); Monocytes # (auto) 0.5 10 ^3/uL (0-1.3); Red Cell Distribution Width 19.8 % (11.8-14.3)
[2023-07-28 08:39] LABS: Basophils # (auto) 0 10 ^3/uL (0-0.2); Basophils % (auto) 0.5 % (0.0-2.0); Hematocrit 34.3 % (36.0-46.0); Hemoglobin 11.3 g/dL (12.2-16.2); Lymphocytes % (auto) 35.3 % (10.0-50.0); Mean Corpuscular Hemoglobin 25.1 pg (28.0-32.0); Mean Corpuscular Hgb Conc. 32.9 g/dL (32.0-36.0); Mean Corpuscular Volume 76.4 fL (80.0-100.0); Monocytes % (auto) 5.7 % (0.0-12.0); Neutrophils # (auto) 4.6 10 ^3/uL (1.6-8.6); Neutrophils % (auto) 57.9 % (37.0-80.0); Red Blood Cells 4.49 10^6/uL (4.0-5.20)
[2023-07-28 08:44] LABS: Sodium 134 mmol/L (136-145)
[2023-07-28 08:46] LABS: Magnesium 0.5 mg/dL (1.6-2.6)
[2023-07-28 08:50] LABS: INR 1.38 (0.9-1.15); Partial Thromboplastin Time 34.3 SEC (24.5-34.5); Prothrombin Time 14.3 sec (9.3-11.8)
[2023-07-28 08:57] LABS: Lipase 33 U/L (12-53)
[2023-07-28 09:00] LABS: Free T4 (Free Thyroxine) 1.21 ng/dL (0.89-1.76)
[2023-07-28 09:01] LABS: Free T3 2.26 pg/mL (2.3-4.2)
[2023-07-28] MEDS: MAGNESIUM SULFATE 1GM/100ML 100 ML IV SCH (10:27)
[2023-07-28] MEDS: PANTOPRAZOLE 40 MG/10 ML VIAL INJ IV SCH (10:56)
[2023-07-28] MEDS: ASPirin 81 mg TAB PO SCH (10:56)
[2023-07-28 13:51] LABS: Potassium 4.4 mmol/L (3.5-5.1)
[2023-07-28 13:58] LABS: Magnesium 1.9 mg/dL (1.6-2.6)
[2023-07-28] MEDS: TAMSULOSIN HYDROCHLORIDE 0.4 MG CAP PO SCH (17:45)
[2023-07-28 20:00] VITALS: BP 110/67; PULSE 52; PULSE 82; RESP 18; TEMP 99.1; O2SAT 0
[2023-07-28 21:00] VITALS: BP_SYST 110; BP_SYST 157; BP_DIAS 67; BP_DIAS 77; PULSE 102; PULSE 82; RESP 18; RESP 19; TEMP 96.7; TEMP 99.1; O2SAT 93; O2SAT 97
[2023-07-28] MEDS: cefTRIAXone 1GM/50ML D5W 50 ML IV SCH (21:13)
[2023-07-28] MEDS: ATORVASTATIN 20 MG TAB PO SCH (21:14)
[2023-07-29 01:00] VITALS: BP 137/62; PULSE 90; RESP 16; TEMP 97.8; O2SAT 97
[2023-07-29] MEDS: ACETAMINOPHEN 325 MG TAB PO PRN (03:34)
[2023-07-29 05:00] VITALS: BP 132/55; PULSE 85; RESP 16; TEMP 97.4; O2SAT 95
[2023-07-29 06:43] LABS: Basophils # (auto) 0 10 ^3/uL (0-0.2); Eosinophils # (auto) 0.1 10 ^3/uL (0-0.8); Hemoglobin 11.3 g/dL (12.2-16.2); Monocytes # (auto) 0.4 10 ^3/uL (0-1.3); Neutrophils # (auto) 5.3 10 ^3/uL (1.6-8.6); White Blood Cell 7.8 10^3/uL (4.4-10.8)
[2023-07-29 06:45] LABS: Basophils % (auto) 0.6 % (0.0-2.0); Eosinophils % (auto) 0.9 % (0.0-7.0); Hematocrit 34.3 % (36.0-46.0); Lymphocytes % (auto) 25.4 % (10.0-50.0); Mean Corpuscular Hemoglobin 25.3 pg (28.0-32.0); Mean Corpuscular Hgb Conc. 32.9 g/dL (32.0-36.0); Mean Corpuscular Volume 76.9 fL (80.0-100.0); Neutrophils % (auto) 68.1 % (37.0-80.0); Red Blood Cells 4.46 10^6/uL (4.0-5.20); Red Cell Distribution Width 19.6 % (11.8-14.3)
[2023-07-29 07:09] LABS: Alanine Aminotransferase 10 U/L (7-40); Albumin 3.6 g/dL (3.2-4.8); Alkaline Phosphatase 75 U/L (46-116); Anion Gap 6 (5-15); Aspartate Aminotransferase 12 U/L (13-40); Bilirubin, Total 0.2 mg/dL (0.2-1.0); Blood Urea Nitrogen 10 mg/dL (9-23); Calcium 8.6 mg/dL (8.7-10.4); Carbon Dioxide 29 mmol/L (20-30); Chloride 102 mmol/L (98-107); Glucose 118 mg/dL (74-106); Potassium 4.3 mmol/L (3.5-5.1); Sodium 137 mmol/L (136-145)
[2023-07-29 08:00] VITALS: BP 110/67; PULSE 78; RESP 16; RESP 18; TEMP 98.2; O2SAT 0
[2023-07-29 08:48] VITALS: BP 121/62; PULSE 74; RESP 15; TEMP 97.6; O2SAT 96
[2023-07-29] MEDS: HYDROcodone-ACET 5/325MG TAB PO PRN (11:14)
[2023-07-29 12:30] VITALS: BP 131/79; PULSE 71; RESP 16; TEMP 98.1; O2SAT 96
[2023-07-29] MEDS ORDERED: TAMS-35 PO (13:34)
[2023-07-29] MEDS ORDERED: ASPI-325 PO (13:34)
[2023-07-29] MEDS ORDERED: ACET-1882 PO (13:34)
[2023-07-29] MEDS ORDERED: CEPH250C PO (13:34)
== END 2023-07-29 17:00 | disposition home or self-care (01) | DRG 690 ==
LOC: ER 15:32 → OVERFLOW 07-28 03:13 → WEST WING 07-28 17:30
PROVIDERS: ADMIT Internal Medicine; ATTEND Internal Medicine
DX: N39.0 Urinary tract infection, site not specified (principal); J98.11 Atelectasis; J44.9 Chronic obstructive pulmonary disease, unspecified; I12.9 Hypertensive chronic kidney disease with stage 1 through stage 4 chronic kidney disease, or unspecified chronic kidney disease; N18.9 Chronic kidney disease, unspecified; E78.5 Hyperlipidemia, unspecified; E87.6 Hypokalemia; E83.51 Hypocalcemia; K57.30 Diverticulosis of large intestine without perforation or abscess without bleeding; E83.42 Hypomagnesemia; K21.9 Gastro-esophageal reflux disease without esophagitis; D50.9 Iron deficiency anemia, unspecified; I25.10 Atherosclerotic heart disease of native coronary artery without angina pectoris; Z88.8 Allergy status to other drugs, medicaments and biological substances; Z91.041 Radiographic dye allergy status; Z82.49 Family history of ischemic heart disease and other diseases of the circulatory system; Z90.710 Acquired absence of both cervix and uterus; I25.2 Old myocardial infarction
CPT/HCPCS: 36415; 71045; 74176; 80048; 80053; 80061; 80320; 81001; 83605; 83690; 83735; 83880; 84132; 84439; 84443; 84481; 84484; 85025; 85610; 85730; 86141; 87086; 93005; 96365; 96367; C9113; G0378

== ENCOUNTER 2023-12-04 12:55 | Emergency (ER) | payer OTHER ==
[~2023-12-04] VITALS: Ht 154.9 cm; Wt 52.0 kg
[~2023-12-04 12:55] MED LIST changes: +ACET-1882 PO; -ARIP1TAB59 PO; +ARIP5TAB22 PO; +ASPI-325 PO; +CEPH250C PO; -CIPR-173 PO; -FLUO-125 PO; +FLUO-470 PO; -FLUO20CA90 PO; -FURO1TAB31 PO; -LEVO137T3 PO; -MAGN400C4 PO; -MET25T PO; -METO25TA93 PO; -NYS5LQ MT; -OXYB5TAB24 PO; -PANT40TA2 PO; -POTA-220 PO; -RIVA15TA PO; +TAMS-35 PO
[2023-12-04 13:56] LABS: Urine Bacteria FEW /hpf (None Seen); Urine Blood TRACE /uL (Negative); Urine Clarity Clear (Clear); Urine Color Light-Yellow (Yellow); Urine Protein, UAD Negative (Negative); Urine Specific Gravity 1.009 (1.001-1.035); Urine Urobilinogen Normal (Negative); Urine WBC 5 /hpf (0 - 5)
[2023-12-04 14:05] VITALS: BP 143/67; PULSE 97; RESP 16; TEMP 98.9; O2SAT 93
[2023-12-04] MEDS ORDERED: BACDST PO (14:44)
== END 2023-12-04 14:49 | disposition home or self-care (01) ==
LOC: ER 13:07
DX: N39.0 Urinary tract infection, site not specified (principal); Z79.899 Other long term (current) drug therapy; Z91.040 Latex allergy status
CPT/HCPCS: 81001

== ENCOUNTER 2023-12-06 15:05 | Inpatient (IN) | payer OTHER ==
[~2023-12-06] VITALS: Ht 154.9 cm; Wt 57.8 kg
[~2023-12-06 15:05] MED LIST changes: +BACDST PO
[2023-12-06 16:35] LABS: Basophils # (auto) 0 10 ^3/uL (0-0.2); Basophils % (auto) 0.4 % (0.0-2.0); Eosinophils # (auto) 0.1 10 ^3/uL (0-0.8); Eosinophils % (auto) 0.7 % (0.0-7.0); Hematocrit 40.8 % (36.0-46.0); Hemoglobin 13.3 g/dL (12.2-16.2); Lymphocytes # (auto) 1.9 10 ^3/uL (0.4-5.4); Lymphocytes % (auto) 16.3 % (10.0-50.0); Mean Corpuscular Hemoglobin 27.3 pg (28.0-32.0); Mean Corpuscular Hgb Conc. 32.7 g/dL (32.0-36.0); Mean Corpuscular Volume 83.5 fL (80.0-100.0); Monocytes # (auto) 0.4 10 ^3/uL (0-1.3); Monocytes % (auto) 3.4 % (0.0-12.0); Neutrophils # (auto) 9.5 10 ^3/uL (1.6-8.6); Neutrophils % (auto) 79.2 % (37.0-80.0); Platelet Count (auto) 344 10^3/uL (140-450); Red Blood Cells 4.89 10^6/uL (4.0-5.20); Red Cell Distribution Width 15.3 % (11.8-14.3); White Blood Cell 11.9 10^3/uL (4.4-10.8)
[2023-12-06 17:19] LABS: Alanine Aminotransferase 18 U/L (7-40); Albumin 4.2 g/dL (3.2-4.8); Alkaline Phosphatase 92 U/L (46-116); Anion Gap 10 (5-15); Aspartate Aminotransferase 19 U/L (13-40); BUN/Creatinine Ratio 8.4 (10.0-20.0); Blood Urea Nitrogen 8 mg/dL (9-23); Calcium 8.3 mg/dL (8.7-10.4); Carbon Dioxide 20 mmol/L (20-31); Chloride 108 mmol/L (98-107); Glucose 85 mg/dL (74-106); Potassium 3.6 mmol/L (3.5-5.1); Sodium 138 mmol/L (136-145)
[2023-12-06 17:20] LABS: Bilirubin, Total 0.2 mg/dL (0.2-1.0); Total Protein 6.7 g/dL (5.7-8.2)
[2023-12-06] MEDS: ALBUTEROL SULF 2.5 MG/0.5ML(0.5%) NEB SOLN ONE (18:08)
[2023-12-06] MEDS: IPRATROPIUM BROM 0.5 MG/2.5ML INH SOL ONE (18:08)
[2023-12-06] MEDS: FUROSEMIDE 40 MG/4 ML VIAL IV ONE (21:31)
[2023-12-06] MEDS: cefTRIAXone 1GM/50ML D5W 50 ML IV ONE (21:32)
[2023-12-06] MEDS: methylPREDNISolone SOD SUCC 125 MG/2 ML VL IV ONE (21:32)
[2023-12-06 23:45] LABS: Urine Bacteria None Seen /hpf (None Seen)
[2023-12-07] VITALS (16 sets, daily range): BP systolic 108–143; BP diastolic 43–69; PULSE 69–115; RESP 16–20; TEMP 97.4–98.1; O2SAT 93–99
[2023-12-07 00:01] LABS: Amphetamine Screen, Urine Neg (NEGATIVE); Barbiturate Scree,Urine Neg (NEGATIVE); Benzodiazephine Screen, Urine Neg (NEGATIVE); Cannabinoid Screen, Urine Pos (NEGATIVE); Cocaine Screen, Urine Neg (NEGATIVE); Opiate Scree,Urine Neg (NEGATIVE); Phencyclidine Screen, Urine Neg (NEGATIVE)
[2023-12-07 00:07] LABS: Urine Blood Negative /uL (Negative); Urine Clarity Clear (Clear); Urine Color Light-Yellow (Yellow); Urine Hyaline Cast FEW /lpf (0 - 2); Urine Mucus FEW (None Seen); Urine Protein, UAD Negative (Negative); Urine Specific Gravity 1.007 (1.001-1.035); Urine Urobilinogen Normal (Negative); Urine WBC 1 /hpf (0 - 5); Urine pH 5.5 (5.0-9.0)
[2023-12-07] MEDS: IPRATROPIUM BROM 0.5 MG/2.5ML INH SOL NEB ONE (00:07)
[2023-12-07] MEDS: ALBUTEROL SULF 2.5 MG/0.5ML(0.5%) NEB SOLN NEB ONE (00:08)
[2023-12-07 00:09] LABS: INR 1.19 (0.9-1.15); Partial Thromboplastin Time 32.2 SEC (24.5-34.5); Prothrombin Time 12.5 sec (9.3-11.8)
[2023-12-07] MEDS ORDERED: IPRATROPIUM BROM 0.5 MG/2.5ML INH SOL NEB SCH (00:15)
[2023-12-07] MEDS ORDERED: LEVALBUTEROL HCL 1.25 MG/3 ML NEB NEB SCH (00:15)
[2023-12-07] MEDS ORDERED: MORPHINE SULFATE INJ 2 MG/ml SYRG IV PRN (00:15)
[2023-12-07] MEDS: POTASSIUM EFFERVESENT TAB 25 MEQ PO ONE (02:12)
[2023-12-07] MEDS: ASPirin 81 mg TAB PO ONE (02:12)
[2023-12-07] MEDS: ATORVASTATIN 20 MG TAB PO ONE (02:13)
[2023-12-07] MEDS: TAMSULOSIN HYDROCHLORIDE 0.4 MG CAP PO ONE (02:13)
[2023-12-07] MEDS: AZITHROMYCIN 500MG/ 250ML 250 ML IV ONE (02:13)
[2023-12-07 03:55] LABS: COVID19 ANTIGEN SOFIA FIA NEGATIVE (NEGATIVE); Rapid Influenza A Negative (Negative); Rapid Influenza B Negative (Negative)
[2023-12-07] MEDS ORDERED: hydrALAZINE HCL 20 MG/ML VL IV PRN (04:45)
[2023-12-07] MEDS: LISINOPRIL 5 MG TAB PO ONE (04:45)
[2023-12-07] MEDS ORDERED: FUROSEMIDE 20 MG/2 ML VIAL IV SCH (04:50)
[2023-12-07] MEDS: MAGNESIUM SULFATE 1GM/100ML 100 ML IV SCH (05:08)
[2023-12-07 05:40] LABS: Hematocrit 36.3 % (36.0-46.0); Hemoglobin 12.4 g/dL (12.2-16.2); Mean Corpuscular Hgb Conc. 34.1 g/dL (32.0-36.0); Platelet Count (auto) 272 10^3/uL (140-450); Red Blood Cells 4.43 10^6/uL (4.0-5.20); Red Cell Distribution Width 15.3 % (11.8-14.3); White Blood Cell 9.2 10^3/uL (4.4-10.8)
[2023-12-07 05:47] LABS: Anion Gap 11 (5-15); Carbon Dioxide 20 mmol/L (20-31); Chloride 103 mmol/L (98-107); Potassium 3.7 mmol/L (3.5-5.1); Sodium 134 mmol/L (136-145)
[2023-12-07 05:48] LABS: Calcium 8.3 mg/dL (8.7-10.4)
[2023-12-07 05:53] LABS: BUN/Creatinine Ratio 10.1 (10.0-20.0); Blood Urea Nitrogen 14 mg/dL (9-23); Glucose 185 mg/dL (74-106)
[2023-12-07 05:55] LABS: Basophils % (manual) 0 (0.0-2.0); Blast Cells 0; Eosinophils % (manual) 0 (0-7); Metamyelocytes % 0; Myelocytes % 0; Promyelocytes % 0; Reactive Lymphocytes 0
[2023-12-07] MEDS: LEVOTHYROXINE SODIUM 25 MCG TAB PO SCH (06:21)
[2023-12-07] MEDS: PANTOPRAZOLE 40 MG TAB PO SCH (06:22)
[2023-12-07 06:34] LABS: Magnesium 0.6 mg/dL (1.6-2.6)
[2023-12-07 06:58] LABS: Band Neutrophils % (manual) 1; Lymphocytes % (manual) 5 (10.0-50.0); Monocytes % (manual) 1 (0-12); Platelet Estimate Adequate
[2023-12-07] MEDS: LEVALBUTEROL HCL 1.25 MG/3 ML NEB NEB SCH (07:23)
[2023-12-07] MEDS: IPRATROPIUM BROM 0.5 MG/2.5ML INH SOL NEB SCH (07:25)
[2023-12-07] MEDS: MAGNESIUM SULFATE 1GM/100ML 100 ML IV ONE ×2 (08:51→10:27)
[2023-12-07] MEDS: ERGOCALCIFEROL 50,000 UNIT(1.25MG) CAP PO SCH (10:46)
[2023-12-07] MEDS: predniSONE 20 MG TAB PO SCH (10:46)
[2023-12-07] MEDS: FLUoxetine HCL 20 MG CAP PO SCH (10:46)
[2023-12-07] MEDS: ASPirin 81 mg TAB PO SCH (10:46)
[2023-12-07] MEDS: ENOXAPARIN SOD 40 MG/0.4 ML SYRINGE SC SCH (10:47)
[2023-12-07] MEDS: CYANOCOBALAMIN (B-12) 1000 MCG/1 ML VIAL IM ONE (10:48)
[2023-12-07] MEDS: ACETAMINOPHEN 500 MG TAB PO PRN (17:35)
[2023-12-07] MEDS: TAMSULOSIN HYDROCHLORIDE 0.4 MG CAP PO SCH (18:33)
[2023-12-07] MEDS: cefTRIAXone 1GM/50ML D5W 50 ML IV SCH (20:21)
[2023-12-07] MEDS ORDERED: AZITHROMYCIN 500MG/ 250ML 250 ML IV SCH (21:00)
[2023-12-07] MEDS: AZITHROMYCIN 500MG/ 250ML 250 ML IV SCH (21:29)
[2023-12-07] MEDS: ATORVASTATIN 20 MG TAB PO SCH (21:29)
[2023-12-08] VITALS (10 sets, daily range): BP systolic 112–138; BP diastolic 39–60; PULSE 69–97; RESP 16–20; TEMP 97.4–97.7; O2SAT 91–99
[2023-12-08 07:09] LABS: Chloride 105 mmol/L (98-107); Potassium 4.2 mmol/L (3.5-5.1); Sodium 135 mmol/L (136-145)
[2023-12-08 07:10] LABS: Anion Gap 8 (5-15); Calcium 8.7 mg/dL (8.7-10.4); Carbon Dioxide 22 mmol/L (20-31)
[2023-12-08 07:15] LABS: BUN/Creatinine Ratio 12.9 (10.0-20.0); Blood Urea Nitrogen 13 mg/dL (9-23); Glucose 98 mg/dL (74-106); Magnesium 2.3 mg/dL (1.6-2.6)
[2023-12-08] MEDS: FUROSEMIDE 40 MG TAB PO SCH (09:34)
[2023-12-08] MEDS ORDERED: LEVO750T40 PO ×2 (09:35→18:49)
[2023-12-08] MEDS ORDERED: AZIT-43 PO ×2 (09:35→18:49)
[2023-12-08] MEDS ORDERED: FUROSEMIDE 20 MG TAB PO SCH (10:00)
[2023-12-08] MEDS ORDERED: MAGN400T40 PO ×2 (10:58→18:49)
== END 2023-12-08 13:30 | disposition home or self-care (01) | DRG 177 ==
LOC: ER 15:05 → OVERFLOW 23:27 → TELE-WESTW 12-07 01:02 → TELE 12-07 01:03 → TELE-WESTW 12-07 05:42 → WEST WING 12-08 09:03
PROVIDERS: ADMIT Internal Medicine; ATTEND Internal Medicine
DX: J15.69 Pneumonia due to other Gram-negative bacteria (principal); J96.00 Acute respiratory failure, unspecified whether with hypoxia or hypercapnia; N17.0 Acute kidney failure with tubular necrosis; J44.0 Chronic obstructive pulmonary disease with (acute) lower respiratory infection; J44.1 Chronic obstructive pulmonary disease with (acute) exacerbation; J15.9 Unspecified bacterial pneumonia; I11.0 Hypertensive heart disease with heart failure; I48.91 Unspecified atrial fibrillation; E83.42 Hypomagnesemia; I25.10 Atherosclerotic heart disease of native coronary artery without angina pectoris; E03.9 Hypothyroidism, unspecified; Z20.822 Contact with and (suspected) exposure to COVID-19; K21.9 Gastro-esophageal reflux disease without esophagitis; I50.9 Heart failure, unspecified; E78.5 Hyperlipidemia, unspecified; Z86.73 Personal history of transient ischemic attack (TIA), and cerebral infarction without residual deficits; Z90.710 Acquired absence of both cervix and uterus; Z87.440 Personal history of urinary (tract) infections
CPT/HCPCS: 36415; 71045; 71250; 80048; 80053; 80307; 81001; 82306; 82607; 83036; 83605; 83735; 83880; 84100; 84443; 84484; 85007; 85025; 85027; 85610; 85730; 87081; 87426; 87804; 93005; 93306; 94640; 96365; 96375; G0378

== ENCOUNTER 2023-12-20 02:50 | Inpatient (IN) | payer OTHER ==
[2023-12-20] VITALS (11 sets, daily range): BP systolic 111–130; BP diastolic 49–74; PULSE 77–88; RESP 16–19; TEMP 97.8–98.2; O2SAT 91–99
[~2023-12-20] VITALS: Ht 154.9 cm; Wt 50.8 kg
[~2023-12-20 02:50] MED LIST changes: +AZIT-43 PO; -BACDST PO; -CEPH250C PO; +LEVO750T40 PO; +MAGN400T40 PO
[2023-12-20] MEDS ORDERED: NITROGLYCERIN 0.4 MG SL TAB SL PRN (05:00)
[2023-12-20] MEDS ORDERED: ONDANSETRON HCL 4 MG/2 ML VIAL IV PRN (05:00)
[2023-12-20] MEDS ORDERED: MORPHINE SULFATE INJ 2 MG/ml SYRG IV PRN (05:00)
[2023-12-20] MEDS ORDERED: ACETAMINOPHEN 325 MG TAB PO PRN (05:00)
[2023-12-20 09:33] LABS: Hematocrit 38.8 % (36.0-46.0); Mean Corpuscular Hemoglobin 27.9 pg (28.0-32.0); Mean Corpuscular Hgb Conc. 33.6 g/dL (32.0-36.0); Mean Corpuscular Volume 83.3 fL (80.0-100.0); Platelet Count (auto) 246 10^3/uL (140-450); Red Blood Cells 4.67 10^6/uL (4.0-5.20); Red Cell Distribution Width 16.4 % (11.8-14.3)
[2023-12-20 09:41] LABS: Band Neutrophils % (manual) 0; Basophils % (manual) 0 (0.0-2.0); Blast Cells 0; Eosinophils % (manual) 0 (0-7); Metamyelocytes % 0; Monocytes % (manual) 0 (0-12); Myelocytes % 0; Promyelocytes % 0; Reactive Lymphocytes 0
[2023-12-20 09:49] LABS: Alanine Aminotransferase 11 U/L (7-40); Albumin 4.2 g/dL (3.2-4.8); Alkaline Phosphatase 103 U/L (46-116); Anion Gap 11 (5-15); Aspartate Aminotransferase 12 U/L (13-40); BUN/Creatinine Ratio 14.1 (10.0-20.0); Blood Urea Nitrogen 13 mg/dL (9-23); Calcium 7.4 mg/dL (8.7-10.4); Carbon Dioxide 24 mmol/L (20-31); Chloride 104 mmol/L (98-107); Glucose 158 mg/dL (74-106); Potassium 3.5 mmol/L (3.5-5.1); Sodium 139 mmol/L (136-145)
[2023-12-20 09:50] LABS: Bilirubin, Total 0.4 mg/dL (0.2-1.0); Total Protein 6.2 g/dL (5.7-8.2)
[2023-12-20] MEDS: methylPREDNISolone SOD SUCC 40 MG/ML VL IV SCH (10:05)
[2023-12-20] MEDS: AZITHROMYCIN 500MG/ 250ML 250 ML IV SCH (10:05)
[2023-12-20] MEDS: FLUoxetine HCL 20 MG CAP PO SCH (10:05)
[2023-12-20] MEDS: ENOXAPARIN SOD 40 MG/0.4 ML SYRINGE SC SCH (10:22)
[2023-12-20 11:16] LABS: Lymphocytes % (manual) 13 (10.0-50.0); Platelet Estimate Adequate
[2023-12-20 12:14] LABS: Lactic Acid w/Reflex 2.3 mmol/L (0.4-2.0)
[2023-12-20 13:47] LABS: Urine Bacteria None Seen /hpf (None Seen)
[2023-12-20 14:27] LABS: Urine Blood Negative /uL (Negative); Urine Clarity Clear (Clear); Urine Color Light-Yellow (Yellow); Urine Protein, UAD Negative (Negative); Urine Specific Gravity 1.009 (1.001-1.035); Urine Urobilinogen Normal (Negative); Urine WBC <1 /hpf (0 - 5)
[2023-12-20 14:53] LABS: Amphetamine Screen, Urine Neg (NEGATIVE)
[2023-12-20 14:54] LABS: Barbiturate Scree,Urine Neg (NEGATIVE); Benzodiazephine Screen, Urine Neg (NEGATIVE); Cannabinoid Screen, Urine Pos (NEGATIVE); Cocaine Screen, Urine Neg (NEGATIVE); Opiate Scree,Urine Neg (NEGATIVE); Phencyclidine Screen, Urine Neg (NEGATIVE)
[2023-12-20 15:28] LABS: Rapid Influenza A Negative (Negative); Rapid Influenza B Negative (Negative)
[2023-12-20] MEDS: MAGNESIUM OXIDE 400 MG TAB PO ONE (16:13)
[2023-12-20] MEDS: ASPirin-EC 81 mg tab PO ONE (16:14)
[2023-12-20 17:29] LABS: Chloride 104 mmol/L (98-107); Potassium 3.7 mmol/L (3.5-5.1)
[2023-12-20 17:30] LABS: Anion Gap 9 (5-15); Calcium 7.4 mg/dL (8.7-10.4); Carbon Dioxide 21 mmol/L (20-31)
[2023-12-20 17:35] LABS: BUN/Creatinine Ratio 18.3 (10.0-20.0); Blood Urea Nitrogen 17 mg/dL (9-23); Glucose 246 mg/dL (74-106)
[2023-12-20] MEDS: TAMSULOSIN HYDROCHLORIDE 0.4 MG CAP PO SCH (17:37)
[2023-12-20] MEDS: FUROSEMIDE 20 MG/2 ML VIAL IV ONE (17:38)
[2023-12-20] MEDS ORDERED: RIVAROXABAN 15 MG TAB PO SCH (18:00)
[2023-12-20 18:18] LABS: Erythrocyte Sedimentation Rate 16 mm/hr (0-20)
[2023-12-20 18:22] LABS: Sodium 134 mmol/L (136-145)
[2023-12-20] MEDS: IPRATROPIUM BROM 0.5 MG/2.5ML INH SOL NEB PRN (19:14)
[2023-12-20] MEDS: ALBUTEROL SULF 2.5 MG/0.5ML(0.5%) NEB SOLN NEB PRN (19:14)
[2023-12-20] MEDS: RIVAROXABAN 15 MG TAB PO SCH (19:53)
[2023-12-20] MEDS: CALCIUM CARB 500 MG CHEW TAB PO SCH (21:22)
[2023-12-20] MEDS: ATORVASTATIN 20 MG TAB PO SCH (21:23)
[2023-12-21 01:00] VITALS: BP 115/97; PULSE 79; RESP 18; TEMP 97.9; O2SAT 98
[2023-12-21 05:00] VITALS: BP 118/50; PULSE 80; RESP 17; TEMP 97.8; O2SAT 94
[2023-12-21] MEDS: PANTOPRAZOLE 40 MG TAB PO SCH (06:02)
[2023-12-21] MEDS: LEVOTHYROXINE SODIUM 112 MCG TAB PO SCH (06:02)
[2023-12-21] MEDS ORDERED: DEXTROSE (50%) 50ML SYRG IV PRN (06:45)
[2023-12-21] MEDS: ACCU-CHEK COMFORT CURVE STRIP VI SCH (06:58)
[2023-12-21] MEDS: InsuLIN REG 1unit/0.01ml Soln (100units/ml) SC SCH (07:06)
[2023-12-21 08:30] VITALS: PULSE 69; RESP 18; O2SAT 98
[2023-12-21 09:09] VITALS: BP 131/72; PULSE 69; RESP 18; TEMP 98.6; O2SAT 98
[2023-12-21] MEDS: ASPirin-EC 81 mg tab PO SCH (09:53)
[2023-12-21] MEDS: FUROSEMIDE 20 MG/2 ML VIAL IV SCH (09:53)
[2023-12-21] MEDS ORDERED: CALC500C52 PO (09:55)
[2023-12-21] MEDS ORDERED: LEVO750T40 PO (10:54)
[2023-12-21] MEDS ORDERED: PRED20TA2 PO (10:57)
[2023-12-21 11:00] VITALS: BP_SYST 103; BP_SYST 131; BP_DIAS 45; BP_DIAS 72; PULSE 69; PULSE 82; RESP 18; RESP 20; TEMP 98; TEMP 98.6; O2SAT 94; O2SAT 98
[2023-12-21 12:51] VITALS: BP 103/45; PULSE 82; RESP 20; TEMP 98; O2SAT 94
== END 2023-12-21 14:40 | disposition home or self-care (01) | DRG 177 ==
LOC: EAST 03:52
PROVIDERS: ADMIT Internal Medicine; ATTEND Internal Medicine
DX: J15.69 Pneumonia due to other Gram-negative bacteria (principal); J96.21 Acute and chronic respiratory failure with hypoxia; J44.1 Chronic obstructive pulmonary disease with (acute) exacerbation; D68.69 Other thrombophilia; J15.9 Unspecified bacterial pneumonia; K21.9 Gastro-esophageal reflux disease without esophagitis; E03.9 Hypothyroidism, unspecified; I25.10 Atherosclerotic heart disease of native coronary artery without angina pectoris; E78.5 Hyperlipidemia, unspecified; I48.91 Unspecified atrial fibrillation; E83.42 Hypomagnesemia; E83.51 Hypocalcemia; F32.9 Major depressive disorder, single episode, unspecified; I25.2 Old myocardial infarction; Z79.899 Other long term (current) drug therapy; I11.0 Hypertensive heart disease with heart failure; I50.9 Heart failure, unspecified
CPT/HCPCS: 36415; 36600; 71045; 80048; 80053; 80307; 81001; 82805; 82962; 83605; 83735; 84484; 85007; 85027; 85652; 86141; 87040; 87081; 87804; 94640; G0378; J1815

== ENCOUNTER 2024-06-14 00:04 | Emergency (ER) | payer OTHER, MEDICAID ==
[~2024-06-14] VITALS: Ht 157.5 cm; Wt 59.0 kg
[~2024-06-14 00:04] MED LIST changes: -AZIT-43 PO; +CALC500C52 PO; +PRED20TA2 PO
--- NOTE | 2024-06-14 00:42 | ED.PDOC ---
History of Present Illness HPI Comments 78-year-old female came to ER via EMS for nausea and vomiting. Patient has been having episodes of nausea and vomiting for the past few hours. Patient was seen at [facility], diagnostics were done, given Reglan and IV fluids, diagnosed with UTI and was sent home with Omnicef and Zofran. Patient just left the hospital about an hour ago, however family members were not satisfied, so they called paramedics, and insisted that patient be brought to this institution for further management. Patient denies any pain but still feels nauseated at this time Chief Complaint: Nausea/Vomiting Time Seen by MD: 00:41 Primary Care Provider: YANICK Reviewed Notes: Healthcare Sales Representative Notes Allergies: Coded Allergies: Iodine (Verified Allergy, Unknown, 03/06/23) Phenobarbital (Verified Allergy, Unknown, 03/06/23) Home Meds Active Scripts Prednisone (Prednisone) 20 Mg Tab, 40 MG PO DAILY for 3 Days, #3 MG Prov:RONAL SINHA RESIDENT 12/21/23 Levofloxacin Hemihydrate (LEVOFLOXACIN) 750 Mg Tab, 1 TAB PO DAILY for 5 Days, #5 TAB Prov:RONAL SINHA [facility] 12/21/23 Calcium Carbonate (Calcium Carbonate) 500 Mg Chw, 500 MG PO BID for 20 Days, #60 TAB.CHEW Prov:RONAL SINHA [facility] 12/21/23 Magnesium Oxide (MAGNESIUM OXIDE) 400 Mg Tab, 1 TAB PO DAILY for 10 Days, #10 TAB 5 Refills Prov:KASIA LOWE RESIDENT 12/08/23 Tamsulosin Hcl (Flomax) 0.4 Mg Cap, 0.4 MG PO QPM for 30 Days, #30 CAP Prov:RENITA PEDERSON RESIDENT 07/29/23 Acetaminophen (Acetaminophen) 325 Mg Tab, 650 MG PO Q6HP PRN for 30 Days, #240 TAB Prov:RENITA PEDERSON RESIDENT 07/29/23 Aspirin (Aspirin Low Dose) 81 Mg Tab, 81 MG PO DAILY for 30 Days, #30 TAB Prov:RENITA PEDERSON RESIDENT 07/29/23 Levothyroxine Sodium (Synthroid) 112 Mcg Tab, 112 MCG PO QAM for 60 Days, #60 TAB Prov:JASSON SIU COMM[employer]CIAL INTELLIGENCE MANAGER 03/08/23 Fluoxetine HCl (Fluoxetine HCl) 20 Mg Cap, 20 MG PO HS for 60 Days, #60 CAP Prov:JASSON SIU COMMERCIAL INTELLIGENCE MANAGER 03/08/23 Montelukast Sodium (MONTELUKAST SODIUM) 10 Mg Tab, 10 MG PO HS for 60 Days, #60 TAB Prov:RODGER SIUPH COMMERCIAL INTELLIGENCE MANAGER 03/08/23 Aripiprazole (Aripiprazole) 5 Mg Tab, 5 MG PO DAILY for 60 Days, #60 TAB Prov:RODGER SIUPH COMMERCIAL INTELLIGENCE MANAGER 03/08/23 Fullnqbadzo-Lwrcphusosgu-Xbyhh (Trelegy Ellipta 200-62.5-25 Mcg/INH) 1 Aer Aer, 1 PUFF INH DAILY for 60 Days, #60 AER Prov:JASSON SIU COMMERCIAL INTELLIGENCE MANAGER 03/08/23 Reported Medications Pantoprazole Sodium Sesquihydr (Pantoprazole Sodium) 40 Mg Tab, 40 MG PO DAILY, TAB 02/20/23 Atorvastatin Calcium (Lipitor) 20 Mg Tab, 1 TAB PO DAILY, #90 TAB 1 Refill 02/19/23 Fluticasone Propionate (Nasal) (Flonase Allergy Relief) 50 Mcg/Act Spr, 50 MCG NA, SPRAY 02/19/23 Albuterol Sulfate (VENTOLIN MDI) 90 Mcg Ih, 90 MCG IN, INH 02/19/23 Tramadol Hcl (Tramadol Hcl) 50 Mg Tab, 50 MG PO Q8HPRN, MG 02/19/23 Information Source: Patient, Emergency Med Personnel Mode of Arrival: EMS Severity: Moderate Timing: Hours Duration: Since onset Past Medical History PAST MEDICAL HISTORY: AFIB, CHF, CKF, COPD, High Lipids, HTN, Liver, [place], Thyroid Surgical History: Hysterectomy 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 Hx Family History Family History: Unknown Social History Smoker: Non-Smoker Alcohol: Denies ETOH Use Drugs: Marijuana Lives In: Home Constitutional: denies: chills, diaphoresis, fatigue, fever, malaise, sweats, weakness, others EENTM: denies: blurred vision, double vision, ear bleeding, ear discharge, ear drainage, ear pain, ear ringing, eye pain, eye redness, hearing loss, mouth pain, mouth swelling, nasal discharge, nose bleeding, nose congestion, nose pain, photophobia, tearing, throat pain, throat swelling, voice changes, others Respiratory: denies: cough, hemoptysis, orthopnea, SOB at rest, shortness of breath, SOB with excertion, stridor, wheezing, others Cardiovascular: denies: chest pain, dizzy spells, diaphoresis, Dyspnea on exertion, edema, irregular heart beat, left arm pain, lightheadedness, palpitations, PND, syncope, others Gastrointestinal: reports: nausea, vomiting; denies: abdomen distended, abdominal pain, blood streaked bowels, constipated, diarrhea, dysphagia, difficulty swallowing, hematemesis, melena, poor appetite, poor fluid intake, rectal bleeding, rectal pain, others Genitourinary: denies: abnormal vagina bleeding, burning, dyspareunia, dysuria, flank pain, frequency, hematuria, incontinence, pain, , vagina discharge, urgency, others Neurological: denies: dizziness, fainting, headache, left sided numbness, left sided weakness, numbness, paresthesia, pre-existing deficit, right sided numbness, right sided weakness, seizure, speech problems, tingling, tremors, weakness, others Musculoskeletal: denies: back pain, gout, joint pain, joint swelling, muscle pain, muscle stiffness, neck pain, others Integumetry: denies: bruises, change in color, change in hair/nails, dryness, laceration, lesions, lumps, rash, wounds, others Allergic/Immunocompromised: denies: Difficulty Healing, Frequent Infections, Hives, Itching, others Hematologic/Lymphatic: denies: anemia, blood clots, easy bleeding, easy bruising, swollen glands, others Endocrine: denies: excessive hunger, excessive sweating, excessive thirst, excessive urination, flushing, intolerance to cold, intolerance to heat, unexplained weight gain, unexplained weight loss, others Psychiatric: denies: anxiety, bipolar disorder, depression, hopeless, panic disorder, schizophrenia, sleepless, suicidal, others Physical Exam General Appearance: No Apparent Distress, Normal HEENT: Normal ENT Inspection, Pharynx Normal, TMs Normal Neck: Full Range of Motion, Non-Tender, Normal, Normal Inspection Respiratory: Chest Non-Tender, Lungs Clear, No Accessory Muscle Use, No Respiratory Distress, Normal Breath Sounds Cardiovascular: No Edema, No JVD, No Murmur, No Gallop, Normal Peripheral Pulses, Regular Rate/Rhythm Breast Exam: Deferred Gastrointestinal: No Organomegaly, Non Tender, No Pulsatile Mass, Normal Bowel Sounds, Soft Genitalia: Deferred Pelvic: Deferred Rectal: Deferred Extremities: No calf tenderness, Normal capillary refill, Normal inspection, Normal range of motion, Non-tender, No pedal edema Musculoskeletal : Apperance: Normal Neurologic: Alert, pulp mixer II-XII nml as Tested, No Motor Deficits, Normal Affect, Normal Mood, No Sensory Deficits Cerebellar Function: Normal Reflexes: Normal Skin: Dry, Normal Color, Warm Lymphatic: No Adenopathy Was a procedure done? Was a procedure done?: No Differential Dx Considerations may include: Urinary tract infection, electrolyte imbalance, dehydration, gastritis X-Ray, Labs, Meds, VS Vital Signs Date Time Temp Pulse Resp B/P (MAP) Pulse Ox O2 Delivery O2 Flow Rate FiO2 06/14/24 03:50 98.8 71 13 94/52 (66) 98.8 06/14/24 00:04 98.9 98 18 182/81 (114) 95 98.9 Lab Test 06/14/24 00:48 Range/Units White Blood Count 4.9 4.4-10.8 10^3/uL Red Blood Count 3.92 L 4.0-5.20 10^6/uL Hemoglobin 10.9 L 12.2-16.2 g/dL Hematocrit 34.0 L 36.0-46.0 % Mean Corpuscular Volume 86.6 80.0-100.0 fL Mean Corpuscular Hemoglobin 27.9 L 28.0-32.0 pg Mean Corpuscular Hemoglobin Concent 32.2 32.0-36.0 g/dL Red Cell Distribution Width 19.7 H 11.8-14.3 % Platelet Count 179 140-450 10^3/uL Mean Platelet Volume 8.4 6.9-10.8 fL Neutrophils (%) (Auto) 72.6 37.0-80.0 % Lymphocytes (%) (Auto) 19.0 10.0-50.0 % Monocytes (%) (Auto) 6.9 0.0-12.0 % Eosinophils (%) (Auto) 0.9 0.0-7.0 % Basophils (%) (Auto) 0.6 0.0-2.0 % Neutrophils # (Auto) 3.6 1.6-8.6 10 ^3/uL Lymphocytes # (Auto) 0.9 0.4-5.4 10 ^3/uL Monocytes # (Auto) 0.3 0-1.3 10 ^3/uL Eosinophils # (Auto) 0 0-0.8 10 ^3/uL Basophils # (Auto) 0 0-0.2 10 ^3/uL Nucleated Red Blood Cells 0.0 % Sodium Level 138 136-145 mmol/L Potassium Level 2.9 L 3.5-5.1 mmol/L Chloride Level 106 98-107 mmol/L Carbon Dioxide Level 21 20-31 mmol/L Anion Gap 11 5-15 Blood Urea Nitrogen 10 9-23 mg/dL Creatinine 0.92 0.550-1.02 mg/dL Glomerular Filtration Rate Calc 65 >90 mL/min BUN/Creatinine Ratio 10.9 10.0-20.0 Serum Glucose 88 74-106 mg/dL Calcium Level 6.4 L 8.7-10.4 mg/dL Current Medications Medications (Trade) Dose Ordered Sig/Jason Route Start Time Stop Time Status Last Admin Sodium Chloride 1,000 ml @ 1,000 mls/hr Q1H ONCE IV 06/14/24 03:15 06/14/24 04:14 DC 06/14/24 04:12 Potassium Chloride 100 ml @ 50 mls/hr Q2H IV 06/14/24 04:00 06/14/24 07:59 06/14/24 04:15 Potassium Chloride (Klor-Con Tablet) 40 meq ONCE ONCE PO 06/14/24 04:00 06/14/24 04:01 DC 06/14/24 04:13 Time of 1ST Reevaluation: 00:34 Reevaluation 1ST: Unchanged Patient Education/Counseling: Diagnosis, Treatment Family Education/Counseling: No Family Present Departure 1 Departure Time of Disposition: 03:16 ([place] with gastroenteritis and hypokalemia. Patient had her potassium repleted and we will discharge patient home with outpatient follow up) Impression: Primary Impression: Gastroenteritis Additional Impression: Hypokalemia Disposition: 01 HOME / SELF CARE / HOMELESS Condition: Stable Additional Instructions: It is important to take your medications that you were prescribed earlier. And follow up with your regular doctors. Discharged With: Self Critical Care Note Critical Care Time?: No Stability Stability form required: No Heart Score Heart Score: Heart Score Response (Comments) Value History N/A 0 EKG N/A 0 Age N/A 0 Risk Factors N/A 0 Troponin N/A 0 Total 0 I personally scribed for BRIANNE CHAPMAN MD ([email or web address]) on 06/14/24 at 00:42. Electronically submitted by Ethan Carolina ([facility]). BRIANNE CHAPMAN MD Jun 14, 2024 00:42
[2024-06-14 01:11] LABS: Basophils # (auto) 0 10 ^3/uL (0-0.2); Basophils % (auto) 0.6 % (0.0-2.0); Eosinophils # (auto) 0 10 ^3/uL (0-0.8); Eosinophils % (auto) 0.9 % (0.0-7.0); Hemoglobin 10.9 g/dL (12.2-16.2); Lymphocytes # (auto) 0.9 10 ^3/uL (0.4-5.4); Mean Corpuscular Hemoglobin 27.9 pg (28.0-32.0); Mean Corpuscular Hgb Conc. 32.2 g/dL (32.0-36.0); Mean Corpuscular Volume 86.6 fL (80.0-100.0); Monocytes # (auto) 0.3 10 ^3/uL (0-1.3); Monocytes % (auto) 6.9 % (0.0-12.0); Neutrophils # (auto) 3.6 10 ^3/uL (1.6-8.6); Neutrophils % (auto) 72.6 % (37.0-80.0); Platelet Count (auto) 179 10^3/uL (140-450); Red Blood Cells 3.92 10^6/uL (4.0-5.20); Red Cell Distribution Width 19.7 % (11.8-14.3); White Blood Cell 4.9 10^3/uL (4.4-10.8)
[2024-06-14 01:24] LABS: Anion Gap 11 (5-15); Carbon Dioxide 21 mmol/L (20-31); Chloride 106 mmol/L (98-107); Sodium 138 mmol/L (136-145)
[2024-06-14 01:27] LABS: Calcium 6.4 mg/dL (8.7-10.4); Potassium 2.9 mmol/L (3.5-5.1)
[2024-06-14 01:29] LABS: Glucose 88 mg/dL (74-106)
[2024-06-14 01:30] LABS: BUN/Creatinine Ratio 10.9 (10.0-20.0); Blood Urea Nitrogen 10 mg/dL (9-23)
[2024-06-14] MEDS ORDERED: POTASSIUM CHL 20MEQ/50ML 50 ML IV SCH (02:15)
[2024-06-14] MEDS: SODIUM CHLORIDE 0.9% 1,000 ML IV ONE (04:12)
[2024-06-14] MEDS: POTASSIUM CHL 20 Meq TABLET PO ONE (04:13)
[2024-06-14] MEDS: POTASSIUM CHL 20MEQ/100ML 100 ML IV SCH (04:15)
[2024-06-14] MEDS: POTASSIUM CHL 20MEQ/50ML 100 ML IV ONE (04:16)
[2024-06-14 06:31] VITALS: PULSE 95; TEMP 98.8; O2SAT 98
[2024-06-14 06:55] LABS: Urine Bacteria FEW /hpf (None Seen); Urine Blood TRACE /uL (Negative); Urine Clarity Turbid (Clear); Urine Color Light-Yellow (Yellow); Urine Protein, UAD Negative (Negative); Urine Squamous Epithelial Cell FEW /hpf (<5); Urine Urobilinogen Normal (Negative); Urine WBC 4 /HPF (0-5); Urine pH 6.5 (5.0-9.0)
[2024-06-14 08:00] VITALS: BP 117/44; PULSE 83; RESP 14; O2SAT 92
== END 2024-06-14 09:17 | disposition home or self-care (01) ==
LOC: ER 00:04 → EDBD 00:04 → ER 09:17
DX: K52.9 Noninfective gastroenteritis and colitis, unspecified (principal); E87.6 Hypokalemia; I11.0 Hypertensive heart disease with heart failure; I50.9 Heart failure, unspecified; E78.5 Hyperlipidemia, unspecified; I25.2 Old myocardial infarction; F12.90 Cannabis use, unspecified, uncomplicated; Z90.710 Acquired absence of both cervix and uterus; Z79.899 Other long term (current) drug therapy; Z79.52 Long term (current) use of systemic steroids; Z79.82 Long term (current) use of aspirin; Z88.8 Allergy status to other drugs, medicaments and biological substances
CPT/HCPCS: 36415; 80048; 81001; 85025; 96365; 96366; 99284; J3480